=== PATIENT | male | born 1990 | race Caucasian/White ===

== ENCOUNTER → 2017-01-08 | Outpatient (CLI) | payer BC | END | disposition home or self-care (01) | LOC: LABPAT 11:41 | PROVIDERS: ATTEND Surgery | DX: Z01.810 Encounter for preprocedural cardiovascular examination (principal) | CPT/HCPCS: 86850; 86900; 86901; 93005 ==

== ENCOUNTER 2017-01-10 08:17 | Inpatient (IN) | payer BC ==
[2017-01-08 10:20] VITALS: BMI 36.6
[~2017-01-10 08:17] MED LIST: DEXAMETHASONE SOD PHOSPHATE 10 MG/ML 1 ML VIAL IV ONE; HEPARIN SODIUM,PORCINE 5,000 UNIT/ML 1 ML VIAL SQ ONE; HYDROmorphone 1 MG/ML 1 ML SYRINGE IVP PRN; LACTATED RINGERS 1,000 ML IV SCH; MIDAZOLAM 2 MG/2 ML VIAL IV PRN; ONDANSETRON 4 MG/2 ML VIAL IVP ONE; SCOPOLAMINE 1.5MG/72HR PATCH TRANSDERM ONE; ceFAZolin 3 GM in SODIUM CHLORIDE 0.9% 100 ML IVPB ONE; metroNIDAZOLE-NS PMX 500 MG in SALINE 1 100ML.BAG IVPB ONE
[2017-01-10] MEDS ORDERED: LIDOCAINE 1% 20 ML VIAL (10MG/ML) FOR IV START INTRADERMA ONE (09:13)
[2017-01-10] MEDS ORDERED: fentaNYL (PF) 50 MCG/ML 2 ML AMP IV ONE (09:19)
[2017-01-10] MEDS ORDERED: NALOXONE 0.4 MG/ML 1 ML VIAL IV PRN (09:46)
[2017-01-10] MEDS ORDERED: NALBUPHINE 10 MG/ML AMPUL IV PRN (09:46)
--- NOTE | 2017-01-10 10:20 | P.GSHP ---
History of Present Illness H&P Date: 01/10/17 Chief Complaint: Carcinoid tumor appendix This is a 26-year-old male who underwent recent laparoscopic appendectomy. 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 Patient presents today for laparoscopic right colectomy. - Constitutional Constitutional: Reports as per HPI Past Medical History Past Medical History: Asthma, Skin Disorder Additional Past Medical History / Comment(s): hx migraines, Occ slight elevated BP-no rx , dr watching, mass in colon found during appendectomy, dry skin, History of Any Multi-Drug Resistant Organisms: None Reported Past Surgical History: Appendectomy Additional Past Surgical History / Comment(s): appendectomy 12/19/16, Past Anesthesia/Blood Transfusion Reactions: No Reported Reaction Past Psychological History: Depression Smoking Status: Former smoker Past Alcohol Use History: Occasional Additional Past Alcohol Use History / Comment(s): quit smoking 8 yrs ago, smoked for approx 5 yrs, < 1 PPD Past Drug Use History: None Reported - Past Family History Mother Family Medical History: No Reported History Medications and Allergies Home Medications Medication Instructions Recorded Confirmed Type Escitalopram Oxalate [Lexapro] 20 mg PO DAILY 01/08/17 01/08/17 History Loratadine [Claritin] 10 mg PO DAILY PRN 01/08/17 01/10/17 History Phentermine HCl [Adipex-P] 37.5 mg PO QAM 01/08/17 01/10/17 History Allergies Allergy/AdvReac Type Severity Reaction Status Date / Time No Known Allergies Allergy Verified 01/10/17 08:42 Surgical - Exam Vital Signs Temp Pulse Resp BP Pulse Ox 97.6 F 71 16 143/84 97 01/10/17 08:39 01/10/17 08:39 01/10/17 08:39 01/10/17 08:39 01/10/17 08:39 - General well developed, no distress - Eyes PERRL - ENT normal pinna - Neck no masses - Respiratory normal expansion - Cardiovascular Rhythm: regular - Abdomen Abdomen: soft, non tender Assessment and Plan Plan: Carcinoid tumor of appendix. Patient will undergo laparoscopic right colectomy.
[2017-01-10] MEDS ORDERED: NEOSTIGMINE 1 MG/ML 10 ML VIAL ONE (10:50)
[2017-01-10] MEDS ORDERED: LIDOCAINE 1% INJ 10MG/ML (20 ML MDV) ONE (10:50)
[2017-01-10] MEDS ORDERED: GLYCOPYRROLATE 0.2 MG/ML 2 ML VIAL ONE (10:50)
[2017-01-10] MEDS ORDERED: PROPOFOL 10 MG/ML 20 ML VIAL IV ONE (10:50)
[2017-01-10] MEDS ORDERED: ONDANSETRON 4 MG/2 ML VIAL ONE (10:50)
[2017-01-10] MEDS ORDERED: fentaNYL (PF) 50 MCG/ML 2 ML AMP ONE (10:50)
[2017-01-10] MEDS ORDERED: ROCURONIUM BROMIDE 10 MG/ML 10 ML VIAL IV ONE (10:50)
[2017-01-10] MEDS ORDERED: PHENYLEPHRINE-0.9% NACL SYG 1 MG/10 ML SYRINGE ONE (10:50)
[2017-01-10] MEDS ORDERED: SUCCINYLCHOLINE CHLORIDE 100 MG/5 ML SYR IV ONE (10:50)
[2017-01-10] MEDS ORDERED: MIDAZOLAM 2 MG/2 ML VIAL ONE (10:50)
[2017-01-10] MEDS ORDERED: BUPIVACAIN-EPI 0.25%-1:200,000 30 ML VIAL SQ ONE ×2 (11:25)
[2017-01-10] MEDS ORDERED: LACTATED RINGERS 1,000 ML IV ONE ×3 (11:58→13:48)
[2017-01-10] MEDS ORDERED: KETOROLAC 30 MG/ML 1 ML VIAL IVP PRN (12:21)
[2017-01-10] MEDS ORDERED: ONDANSETRON 4 MG/2 ML VIAL IVP PRN (12:21)
--- NOTE | 2017-01-10 12:21 | P.OP ---
Date of Procedure: 01/10/17 Preoperative Diagnosis: Carcinoid tumor of appendix Postoperative Diagnosis: Carcinoid tumor appendix Procedure(s) Performed: Laparoscopic right colectomy Anesthesia: BOBBY Surgeon: Benji Jimenez Estimated Blood Loss (ml): 15 Pathology: other (Ileocolectomy) Condition: stable Disposition: PACU Description of Procedure: The patient's placed on the operative table in the supine position. He received general anesthesia. His abdomen was prepped and draped in the usual sterile fashion. The skin incision sites were anesthetized with 1% local Xylocaine. The skin was incised umbilicus. And then using a Newell clamp the fascia was grasped in the Veress needles placed into the peritoneal cavity. Position of the peritoneal cavity as confirmed with positive drop test. After adequate insufflation the 5 mm trocar was placed into the peritoneal cavity. Next the laparoscope was placed into the pleural cavity and then a 5 mm trocar was placed in the epigastric position and in the low midline position. The cecum was visualized. The patient's placed in the right side up position. Using the Harmonic scissors. The white line of Toldt was divided and the cecum right colon and hepatic flexure was mobilized. Ileum was also mobilized. After full mobilization of the right colon. The trochars withdrawn. The fascia was opened at the level of the umbilicus. The cecum and terminal ileum were brought up in the wound. The cecum and terminal ileum were then transected with the linear cutter stapler. And then using the Harmonic scissors the mesentery the bowel was divided. The specimen was sent to pathology. And then using the MERVIN and TA staplers a onai-hd-devl functional end -to-end staple anastomosis was created. A 3-0 GI silk suture was used as a crotch stitch and then the bowel was placed back the pleural cavity. The fascia of the umbilical incision site was then closed using 0 Vicryl suture. Skin was closed with interrupted 3-0 Monocryl suture. Dermabond dressings was applied. Patient sent to recovery room stable condition.
[2017-01-10] MEDS: BUPIVACAINE (PF) 0.5% 50 ML, HYDROmorphone 5 MG in SODIUM CHLORIDE 0.9% 198 ML EPIDURAL PRN ×3 (12:35→13:48)
[2017-01-10] MEDS: D5-0.45% NACL WITH KCL 20MEQ/L 1,000 ML IV SCH ×2 (17:09→19:46)
[2017-01-10] MEDS: ALVIMOPAN 12 MG CAPSULE PO SCH (19:50)
[2017-01-11] MEDS: D5-0.45% NACL WITH KCL 20MEQ/L 1,000 ML IV SCH ×3 (00:33→19:07)
[2017-01-11] MEDS: diphenhydrAMINE 50 MG/ML 1 ML VIAL IVP PRN ×3 (04:04→19:37)
[2017-01-11] MEDS: ALVIMOPAN 12 MG CAPSULE PO SCH ×2 (08:25→21:54)
--- NOTE | 2017-01-11 09:41 | P.PN ---
Subjective Principal diagnosis: Cecal carcinoid Patient doing well today. Minimal discomfort. No flatus or bowel movement. He is ambulating. Objective - Vital Signs Vital signs: Vital Signs Temp 98.2 F 01/11/17 01:08 Pulse 102 H 01/11/17 01:08 Resp 16 01/11/17 01:08 BP 128/65 01/11/17 01:08 Pulse Ox 94 L 01/11/17 01:08 Intake & Output 01/10/17 01/11/17 01/11/17 18:59 06:59 18:59 Intake Total 2222 1297 Output Total 45 1999 320 Balance 2177 -643 -3200 Weight 122.47 kg Intake: IV 2222 1297 Bupivacaine (Pf) 0.5% 50 72 ml HYDROmorphone 5 mg In Sodium Chloride 0.9% 198 ml @ Per Protocol EPIDURAL .Q0M PRN Rx#: [id number] D5-0.45% NaCl with KCl 1125 20Meq/l 1,000 ml @ 125 mls/hr IV .Q8H EVAN Rx#: [id number] ceFAZolin 3 gm In Sodium 100 Chloride 0.9% 100 ml @ 100 mls/hr IVPB ONCE ONE Rx#:[id number] Output: Urine 20 1999 3200 Uretheral (Waller) 1000 3200 Estimated Blood Loss 25 Other: Voiding Method Indwelling Catheter Indwelling Catheter - Exam Abdomen: Soft, minimal incisional tenderness, nondistended, incisions clean and dry Assessment and Plan (1) Cecal carcinoid Narrative/Plan: Will advance diet to full liquids. Check lab work. Increase activity. Status: Acute
[2017-01-11] MEDS: BUPIVACAINE (PF) 0.5% 50 ML, HYDROmorphone 5 MG in SODIUM CHLORIDE 0.9% 198 ML EPIDURAL PRN (12:00)
[2017-01-12] MEDS: diphenhydrAMINE 50 MG/ML 1 ML VIAL IVP PRN ×4 (00:42→21:33)
[2017-01-12] MEDS: D5-0.45% NACL WITH KCL 20MEQ/L 1,000 ML IV SCH ×3 (02:17→20:23)
[2017-01-12 07:20] LABS: Basophils % (A) 0 %; CH 30.3; CHCM 33.3; Eosinophils % (A) 1 %; HDW 2.59; HGB 12.7 gm/dL (13.0-17.5); Luc # (Auto) 0.11; Luc % (Auto) 2; Lymphocytes # (A) 1.4 k/uL (1.0-4.8); Lymphocytes % (A) 22 %; MCH 29.6 pg (25.0-35.0); MCHC 32.5 g/dL (31.0-37.0); MCV 91.3 fL (80.0-100.0); Mean Platelet Volume 8.4; Monocytes # (A) 0.5 k/uL (0-1.0); Monocytes % (A) 7 %; Neutrophils # (A) 4.5 k/uL (1.3-7.7); Neutrophils % (A) 69 %; RBC 4.28 m/uL (4.30-5.90); RDW 13.2 % (11.5-15.5); WBC 6.6 k/uL (3.8-10.6); WBC (Perox) 7.19
[2017-01-12 07:30] LABS: Anion Gap 6 mmol/L; Blood Urea Nitrogen 7 mg/dL (9-20); Carbon Dioxide 32 mmol/L (22-30); Chloride 102 mmol/L (98-107); Glucose 89 mg/dL (74-99); Non-African American GFR(MDRD) >60 (>60 ml/min/1.73 sqM); Potassium 4.8 mmol/L (3.5-5.1); Sodium 140 mmol/L (137-145)
[2017-01-12] MEDS: ALVIMOPAN 12 MG CAPSULE PO SCH ×2 (08:35→20:23)
--- NOTE | 2017-01-12 10:34 | P.PN ---
Subjective Principal diagnosis: Cecal carcinoid Patient doing well today. Having mild lower abdominal pain. Ambulating. Positive flatus. Asking for more to eat. White blood cell count normal. Objective - Vital Signs Vital signs: Vital Signs Temp 97.5 F L 01/12/17 07:00 Pulse 82 01/12/17 07:00 Resp 15 01/12/17 07:00 BP 126/70 01/12/17 07:00 Pulse Ox 96 01/12/17 07:00 Intake & Output 01/11/17 01/12/17 01/12/17 18:59 06:59 18:59 Intake Total 2124.717 1556.933 Output Total 3200 1100 Balance -1075.283 456.933 Intake: IV 750 1500 D5-0.45% NaCl with KCl 750 1500 20Meq/l 1,000 ml @ 125 mls/hr IV .Q8H [facility] Rx#: [id number] Intake, IV Titration 54.717 56.933 Amount Bupivacaine (Pf) 0.5% 50 54.717 56.933 ml HYDROmorphone 5 mg In Sodium Chloride 0.9% 198 ml @ Per Protocol EPIDURAL .Q0M PRN Rx#: [id number] Oral 1320 Output: Urine 3200 1100 Uretheral (Waller) 3200 1100 Other: Voiding Method Indwelling Catheter Indwelling Catheter Indwelling Catheter - Exam Abdomen: Soft, nondistended, mild lower abdominal tenderness, incisions clean and dry - Labs CBC & Chem 7: 01/12/17 06:47 01/12/17 06:47 Labs: Abnormal Lab Results - Last 24 Hours (Table) 01/12/17 01/12/17 Range/Units 06:47 06:47 RBC 4.28 L (4.30-5.90) m/uL Hgb 12.7 L (13.0-17.5) gm/dL Carbon Dioxide 32 H (22-30) mmol/L BUN 7 L (9-20) mg/dL Assessment and Plan (1) Cecal carcinoid Narrative/Plan: Continuing dilation. Increase diet. Status: Acute
[2017-01-12] MEDS: HYDROcodone/APAP 5-325MG 1 EACH TAB PO PRN (21:28)
[2017-01-12] MEDS: HYDROmorphone 1 MG/ML 1 ML SYRINGE IVP PRN (23:24)
[2017-01-13] MEDS: HYDROcodone/APAP 5-325MG 1 EACH TAB PO PRN ×3 (01:35→11:48)
[2017-01-13] MEDS: D5-0.45% NACL WITH KCL 20MEQ/L 1,000 ML IV SCH (03:13)
[2017-01-13] MEDS: HYDROmorphone 1 MG/ML 1 ML SYRINGE IVP PRN (04:23)
[2017-01-13] MEDS: diphenhydrAMINE 50 MG/ML 1 ML VIAL IVP PRN (05:05)
[2017-01-13 07:11] LABS: Basophils % (A) 0 %; CH 29.9; CHCM 33.1; Eosinophils # (A) 0.1 k/uL (0-0.7); Eosinophils % (A) 2 %; HCT 38.8 % (39.0-53.0); HDW 2.58; HGB 12.8 gm/dL (13.0-17.5); Luc # (Auto) 0.12; Luc % (Auto) 2; Lymphocytes # (A) 1.5 k/uL (1.0-4.8); Lymphocytes % (A) 29 %; MCH 29.9 pg (25.0-35.0); MCHC 32.9 g/dL (31.0-37.0); MCV 90.9 fL (80.0-100.0); Mean Platelet Volume 7.7; Monocytes # (A) 0.5 k/uL (0-1.0); Monocytes % (A) 9 %; Neutrophils # (A) 3.1 k/uL (1.3-7.7); Neutrophils % (A) 58 %; RBC 4.27 m/uL (4.30-5.90); WBC 5.3 k/uL (3.8-10.6); WBC (Perox) 5.73
[2017-01-13] MEDS: ALVIMOPAN 12 MG CAPSULE PO SCH (07:12)
[2017-01-13 07:22] LABS: Anion Gap 9 mmol/L; Blood Urea Nitrogen 10 mg/dL (9-20); Calcium 9.1 mg/dL (8.4-10.2); Carbon Dioxide 28 mmol/L (22-30); Chloride 102 mmol/L (98-107); Glucose 77 mg/dL (74-99); Non-African American GFR(MDRD) >60 (>60 ml/min/1.73 sqM); Potassium 4.1 mmol/L (3.5-5.1); Sodium 139 mmol/L (137-145)
[2017-01-13 07:28] VITALS: BP 116/73; PULSE 69; RESP 17; TEMP 97.6
--- NOTE | 2017-01-13 15:32 | P.DS ---
Providers Date of admission: 01/10/17 08:18 Expected date of discharge: 01/13/17 Attending physician: Benji Jimenez Primary care physician: Miriam Bernal [facility] Course: Patient is a 26-year-old white male who recently underwent laparoscopic appendectomy and was found to have a carcinoid tumor extending to the base of the appendix. Patient presented to the hospital for elective laparoscopic right colectomy. Patient tolerated procedure well. Patient had an uneventful postoperative course. Patient was deemed stable for discharge to home with follow-up in the outpatient setting. Discharge diagnoses: Carcinoid tumor of the appendix status post laparoscopic right colectomy. The above impression and plan have been discussed and directed by Dr. Jimenez. Cassy COOMBS acting as scribe for Dr. Jimenez. Procedures: Laparoscopic right colectomy Patient Condition at Discharge: Good Plan - Discharge Summary New Discharge Prescriptions: HYDROcodone/APAP 7.5-325MG [Lindsey 7.5-325] 1 tab PO Q6HR PRN #28 tab PRN Reason: Pain Discharge Medication List Escitalopram Oxalate [Lexapro] 20 mg PO DAILY 01/08/17 [History] Loratadine [Claritin] 10 mg PO DAILY PRN 01/08/17 [History] Phentermine HCl [Adipex-P] 37.5 mg PO QAM 01/08/17 [History] HYDROcodone/APAP 7.5-325MG [Lindsey 7.5-325] 1 tab PO Q6HR PRN #28 tab 01/13/17 [ Rx] Follow up Appointment(s)/Referral(s): Miriam Bernal MD [Primary Care Provider] - 01/20/17 2:00 pm (Saige Rios NP. ) Benji Jimenez MD [STAFF PHYSICIAN] - 01/21/17 3:00 pm Patient Instructions/Handouts: Laparoscopic Bowel Resection (DC) Activity/Diet/Wound Care/Special Instructions: No heavy lifting, pushing, or pulling items greater than 10 pounds. Soft diet Shower daily, no soaking in bath tubs, pools, or hot tubs. No driving while taking pain medication. Notify surgeon with any signs or symptoms of infection, increased pain, or not tolerating diet. Discharge Disposition: HOME SELF-CARE Pending Studies Pending Results: Pathology of colon
== END 2017-01-13 14:19 | disposition home or self-care (01) | DRG 331 ==
LOC: 2ORWHC 08:18 → 3SUR 12:35
PROVIDERS: ADMIT Surgery; ATTEND Surgery
PROC: 0DTF4ZZ Resection of Right Large Intestine, Percutaneous Endoscopic Approach (ICD-10-PCS; principal; 2017-01-10 10:15)
DX: C18.1 Malignant neoplasm of appendix (principal); F32.9 Major depressive disorder, single episode, unspecified; J45.909 Unspecified asthma, uncomplicated; Z87.891 Personal history of nicotine dependence; Z79.899 Other long term (current) drug therapy
CPT/HCPCS: 80048; 85025; 86850; 86900; 86901; 88309

== ENCOUNTER 2017-07-16 10:47 | Day surgery (SDC) | payer BC, OTHER ==
[2017-07-09 11:01] VITALS: BMI 39.3
[~2017-07-16 10:47] MED LIST changes: -HYDROmorphone 1 MG/ML 1 ML SYRINGE IVP PRN; -MIDAZOLAM 2 MG/2 ML VIAL IV PRN; -SCOPOLAMINE 1.5MG/72HR PATCH TRANSDERM ONE; -metroNIDAZOLE-NS PMX 500 MG in SALINE 1 100ML.BAG IVPB ONE
[2017-07-16] MEDS ORDERED: LIDOCAINE 1% 20 ML VIAL (10MG/ML) FOR IV START INTRADERMA ONE (12:31)
--- NOTE | 2017-07-16 13:03 | P.GSHP ---
History of Present Illness H&P Date: 07/16/17 Chief Complaint: Incarcerated incisional hernia This is a 26-year-old male who's undergone previous laparoscopic right colectomy. Patient is developed an incarcerated incisional hernia. He presents today for laparoscopic robotic system repair. - Constitutional Constitutional: Reports as per HPI Past Medical History Past Medical History: Asthma Additional Past Medical History / Comment(s): Hx asthma as a child, since resolved. Hx migraines. History of Any Multi-Drug Resistant Organisms: None Reported Past Surgical History: Appendectomy Additional Past Surgical History / Comment(s): Surgery to remove mass from colon that was found during appendectomy. Past Anesthesia/Blood Transfusion Reactions: No Reported Reaction Past Psychological History: Depression Additional Psychological History / Comment(s): No current issues with depression. Smoking Status: Former smoker Past Alcohol Use History: Occasional Additional Past Alcohol Use History / Comment(s): Quit smoking 9-10 yrs ago, smoked for approx 5 yrs, < 1 PPD. Past Drug Use History: None Reported - Past Family History Mother Family Medical History: No Reported History Medications and Allergies Home Medications Medication Instructions Recorded Confirmed Type Loratadine [Claritin] 10 mg PO DAILY PRN 01/08/17 07/16/17 History Phentermine HCl [Adipex-P] 37.5 mg PO QAM 01/08/17 07/09/17 History Allergies Allergy/AdvReac Type Severity Reaction Status Date / Time No Known Allergies Allergy Verified 07/09/17 10:51 Surgical - Exam Vital Signs Temp Pulse Resp BP Pulse Ox 97.9 F 56 L 18 143/88 96 07/16/17 12:08 07/16/17 12:08 07/16/17 12:08 07/16/17 12:08 07/16/17 12:08 - General well developed, no distress - Eyes PERRL - ENT normal pinna - Neck no masses - Respiratory normal expansion - Cardiovascular Rhythm: regular - Abdomen Abdomen: soft, non tender Hernia: incisional (Incarcerated incisional hernia located above the umbilicus) Assessment and Plan Plan: Incarcerated incisional hernia. We'll perform laparoscopic robotic-assisted repair.
[2017-07-16] MEDS ORDERED: ROCURONIUM BROMIDE 10 MG/ML 10 ML VIAL IV ONE (13:08)
[2017-07-16] MEDS ORDERED: fentaNYL (PF) 50 MCG/ML 2 ML AMP ONE (13:08)
[2017-07-16] MEDS ORDERED: KETOROLAC 30 MG/ML 1 ML VIAL ONE (13:08)
[2017-07-16] MEDS ORDERED: PROPOFOL 10 MG/ML 20 ML VIAL IV ONE (13:08)
[2017-07-16] MEDS ORDERED: SUCCINYLCHOLINE CHLORIDE 100 MG/5 ML SYR IV ONE (13:08)
[2017-07-16] MEDS ORDERED: HYDROmorphone (PF) 1 MG/ML ONE (13:08)
[2017-07-16] MEDS ORDERED: MIDAZOLAM 2 MG/2 ML VIAL ONE (13:08)
[2017-07-16] MEDS ORDERED: NEOSTIGMINE 1 MG/ML 10 ML VIAL ONE (13:08)
[2017-07-16] MEDS ORDERED: LIDOCAINE 1% INJ 10MG/ML (20 ML MDV) ONE (13:08)
[2017-07-16] MEDS ORDERED: GLYCOPYRROLATE 0.2 MG/ML 2 ML VIAL ONE (13:08)
[2017-07-16] MEDS ORDERED: LIDOCAINE 2%-EPI 1:100,000 20 ML VIAL SQ ONE (13:29)
[2017-07-16] MEDS ORDERED: BUPIVACAINE (PF) 0.25% 30 ML VIAL SQ ONE (13:30)
--- NOTE | 2017-07-16 14:05 | P.OP ---
Date of Procedure: 07/16/17 Preoperative Diagnosis: Incarcerated incisional hernia Postoperative Diagnosis: incarcerated incisional hernia Procedure(s) Performed: Laparoscopic robotic-assisted repair of incarcerated incisional hernia Implants: Anesthesia: JOBA Surgeon: Benji Jimenez Estimated Blood Loss (ml): 5 Pathology: none sent Condition: stable Disposition: PACU Indications for Procedure: Operative Findings: Description of Procedure: Patient's placed on the operating table in the supine position. He received general anesthesia. His abdomen was prepped and draped usual sterile fashion. The abdomen was entered with a 5 mm optical trocar under direct visualization in the left upper quadrant. After adequate insufflation a millimeters robotic trochars placed left lower quadrant. Then a 12 mm trochars placed left lateral position. The initial 5 mm trocar was exchanged for an 8 mm robotic trocar. The patient was placed left side up position and then docked to the robot. Patient had an incarcerated incisional hernia. Using left cautery the incarcerated fat was reduced from the incisional hernia. And then using OV lock suture the fascia was repaired. After the fascial repair. The ventral light ST mesh was secured using 2 OV lock suture. Patient was undocked the robot. The needles were withdrawn. The 12 mm trocar site was closed with 0 Ethibond suture. Skin was closed interrupted 3-0 Monocryl suture. Dermabond was applied. She top she will well and was sent to recovery in stable condition.
[2017-07-16 14:32] VITALS: TEMP 97.6
[2017-07-16] MEDS: HYDROmorphone 1 MG/ML 1 ML SYRINGE IVP PRN ×2 (14:33→14:40)
[2017-07-16] MEDS ORDERED: LACTATED RINGERS 1,000 ML IV ONE ×2 (14:49)
[2017-07-16] MEDS: MEPERIDINE 50 MG/ML SYRINGE IVP ONE ×2 (14:51→14:57)
[2017-07-16 15:03] VITALS: RESP 18
[2017-07-16] MEDS ORDERED: HYDROcodone/APAP 7.5-325MG 1 EACH TAB PO ONE (15:17)
[2017-07-16 15:25] VITALS: BP 120/78; PULSE 89
== END 2017-07-16 16:00 | disposition home or self-care (01) ==
LOC: OR 10:47
PROVIDERS: ATTEND Surgery
DX: K43.0 Incisional hernia with obstruction, without gangrene (principal); J45.909 Unspecified asthma, uncomplicated; F32.9 Major depressive disorder, single episode, unspecified; Z87.891 Personal history of nicotine dependence; Z79.899 Other long term (current) drug therapy; E66.01 Morbid (severe) obesity due to excess calories
CPT/HCPCS: 49655; C1781; J1644; J1100; J2175; J0690; J2405; J1170

== ENCOUNTER 2017-12-26 06:49 | Day surgery (SDC) | payer BC, OTHER ==
[2017-12-23 15:31] VITALS: BMI 43.4
[~2017-12-26 06:49] MED LIST changes: -DEXAMETHASONE SOD PHOSPHATE 10 MG/ML 1 ML VIAL IV ONE; -HEPARIN SODIUM,PORCINE 5,000 UNIT/ML 1 ML VIAL SQ ONE; -ONDANSETRON 4 MG/2 ML VIAL IVP ONE; -ceFAZolin 3 GM in SODIUM CHLORIDE 0.9% 100 ML IVPB ONE
[2017-12-26 07:10] VITALS: RESP 18; TEMP 97.9
[2017-12-26] MEDS ORDERED: PROPOFOL 10 MG/ML 20 ML VIAL IV ONE (07:45)
--- NOTE | 2017-12-26 07:55 | P.GSHP ---
History of Present Illness H&P Date: 12/26/17 Chief Complaint: History of carcinoid tumor appendix Cystoscopy 27-year-old male with a previous history of carcinoid tumor the appendix. Patient presents today for colonoscopy for colon cancer surveillance. Past Medical History Past Medical History: Asthma Additional Past Medical History / Comment(s): Hx asthma as a child, since resolved. Hx migraines. History of Any Multi-Drug Resistant Organisms: None Reported Past Surgical History: Appendectomy Additional Past Surgical History / Comment(s): Surgery to remove benign mass from colon Past Anesthesia/Blood Transfusion Reactions: No Reported Reaction Smoking Status: Former smoker - Past Family History Mother Family Medical History: No Reported History Medications and Allergies Home Medications Medication Instructions Recorded Confirmed Type No Known Home Medications [No 12/23/17 12/26/17 History Known Home Medications] Allergies Allergy/AdvReac Type Severity Reaction Status Date / Time No Known Allergies Allergy Verified 12/23/17 15:26 Surgical - Exam Vital Signs Temp Pulse Resp BP Pulse Ox 97.9 F 75 18 125/79 96 12/26/17 07:08 12/26/17 07:08 12/26/17 07:08 12/26/17 07:08 12/26/17 07:08 - General well developed, no distress - Eyes PERRL - ENT normal pinna - Neck no masses - Respiratory normal expansion - Cardiovascular Rhythm: regular - Abdomen Abdomen: soft, non tender Assessment and Plan Assessment: History of carcinoid tumor. Patient will undergo colonoscopy.
--- NOTE | 2017-12-26 08:05 | P.OP ---
Date of Procedure: 12/26/17 Preoperative Diagnosis: History of carcinoid tumor appendix Postoperative Diagnosis: Normal colonoscopy status post right colectomy Procedure(s) Performed: Colonoscopy Anesthesia: MAC Surgeon: Benji Jimenez Pathology: none sent Condition: stable Disposition: PACU Description of Procedure: PROCEDURE: The patient was placed on the endoscopy table in the lateral position. Digital rectal examination was performed which revealed no abnormalities. The prostate was symmetrical without nodules. Flexible colonoscope was then placed in the patient's anus and passed throughout the entire colon. The right colon was visualized. The patient a previous ileocolonic anastomosis this was normal.. The ascending, transverse, descending and sigmoid colon were normal. The rectum was normal as well. There were no masses, polyps or diverticula noted in the entire colon. SUMMARY OF FINDINGS: Normal colonoscopy status post right colectomy
[2017-12-26 08:44] VITALS: BP 119/65; PULSE 53
== END 2017-12-26 08:53 | disposition home or self-care (01) ==
LOC: ORWHC2ENDO 06:49
PROVIDERS: ATTEND Surgery
DX: Z08 Encounter for follow-up examination after completed treatment for malignant neoplasm (principal); Z85.030 Personal history of malignant carcinoid tumor of large intestine; Z90.49 Acquired absence of other specified parts of digestive tract; Z87.891 Personal history of nicotine dependence
CPT/HCPCS: 45378; J2704

== ENCOUNTER → 2018-02-03 | Outpatient (CLI) | payer OTHER ==
--- NOTE | 2018-02-03 21:53 | CONS ---
CONSULTATION REASON FOR CONSULTATION: Sleep apnea. This is a 27-year-old male patient who was screened positive for obstructive sleep apnea during a routine DOT examination. He has mild soft snoring and his neck size is 18 inches with a BMI of 45. He denies having any hypersomnia or sleepiness. 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 He goes to bed between 10 p.m. and midnight and wakes up at 6 a.m. in the morning. He averages somewhere between 6 and 8 hours of sleep. He does not fall asleep while driving his car. Denies having to wake up choking or gasping in the middle of the night. No grinding of the teeth. No nocturia. No palpitation. No anxiety. No heartburn. He is otherwise healthy. He is trying to lose weight. He is taking phentermine. PAST MEDICAL HISTORY: Obesity. PAST SURGICAL HISTORY: Appendectomy and removal of part of the colon along with hernia repair. DRUG ALLERGIES: NOT KNOWN. OUTPATIENT MEDICATION: Phentermine 1 tablet a day. SOCIAL HISTORY: Nonsmoker. No history of alcoholism. No history of IV drugs. FAMILY HISTORY: Negative for sleep apnea. REVIEW OF SYSTEMS: Twelve-point review of systems was done and positive findings are mentioned above in the history of present illness. No history of any nocturia. No grinding of the teeth. No sleepwalking. No dry mouth. No anxiety or panic attacks. No heartburn. No gasping for air in the middle of the night during sleep. No restlessness in the lower extremities. No sleeptalking or sleepwalking. No anxiety. No depression. PHYSICAL EXAMINATION: BP is 156/89, pulse 64, respirations 16, temperature 98.2, saturation 99% on room air. Weight is 326, height 5 feet 11 inches and BMI is 45. Neck size 18 inches. GENERAL APPEARANCE: Calm, comfortable. Head is atraumatic, normocephalic. Neck is short, supple. There is no goiter or neck masses. LUNGS: Diminished breath sounds. Otherwise clear. HEART: Sounds are regular rate and rhythm. Normal S1, S2. No S3. No S4. No murmurs. ABDOMEN: Soft, nontender. No organomegaly. EXTREMITIES: No edema. No cyanosis or clubbing. NEUROLOGIC: Alert and oriented x3. No focal neurological deficits. PSYCHIATRIC: No anxiety or depression. IMPRESSION: 1. Snoring with anatomic features of obstructive sleep apnea with an elevated body mass index of 45 and a neck size of 18 inches. Rule out underlying obstructive sleep apnea. 2. 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 Awaiting DOT clearance. 3. Obesity. PLAN: 1. Proceed with a PSG, looking for any significant sleep breathing disorder. 2. Will review the sleep study once completed and will refer back to [facility] regarding his DOT certification. 3. Encourage weight loss. MMSUKHL / MARIA DEL ROSARION: [id number] /
== END | disposition home or self-care (01) ==
LOC: SLEEP 16:55
PROVIDERS: ATTEND Internal Medicine Critical Care Medicine
DX: R06.83 Snoring (principal); E66.9 Obesity, unspecified; Z68.42 Body mass index [BMI] 45.0-49.9, adult
CPT/HCPCS: 99211

== ENCOUNTER 2018-04-12 20:04 | Observation (INO) | payer OTHER ==
[2018-04-12] MEDS ORDERED: SODIUM CHLORIDE 0.9% 1,000 ML IV STA ×2 (20:42→21:37)
[2018-04-12] MEDS ORDERED: ASPIRIN 81 MG PO STA (20:42)
--- NOTE | 2018-04-12 20:42 | ED ---
Chest Pain HPI - General Chief Complaint: Chest Pain Stated Complaint: Dizziness/Chest Heaviness Time Seen by Provider: 04/12/18 20:31 Source: patient, RN notes reviewed Mode of arrival: ambulatory Limitations: no limitations - History of Present Illness Initial Comments: This is a 27-year-old male who presents to the emergency department with chief complaint of chest tightness and dizziness. Patient states that earlier this morning he was out on the boat for 5 hours. He states that he felt well throughout the day. He states that 2 hours ago he developed some nausea and dizziness. He states that he feels like the room is vibrating. He states that he then developed a central chest tightness that lasted for approximately half an hour and then went away. He states that he then had 4 episodes of vomiting. The chest pain then returned again and is still present. Patient states that he was breathing heavily but denies any shortness of breath. He denies any recent illnesses. Denies fevers or chills, abdominal pain, diarrhea or constipation, dysuria or hematuria. He denies any past medical history. - Related Data Home Medications Medication Instructions Recorded Confirmed No Known Home Medications [No 12/23/17 04/12/18 Known Home Medications] Allergies Allergy/AdvReac Type Severity Reaction Status Date / Time No Known Allergies Allergy Verified 04/12/18 20:13 Review of Systems ROS Statement: Those systems with pertinent positive or pertinent negative responses have been documented in the HPI. ROS Other: All systems not noted in ROS Statement are negative. EKG Findings - EKG Comments: EKG Findings:: 20:23:50. Sinus rhythm with first-degree AV block. Ventricular rate 100 bpm, CT interval 212, QS duration 94, QT/QTC 340/438 Past Medical History Past Medical History: Asthma Additional Past Medical History / Comment(s): Hx asthma as a child, since resolved. Hx migraines. History of Any Multi-Drug Resistant Organisms: None Reported Past Surgical History: Appendectomy, Hernia Repair Additional Past Surgical History / Comment(s): Surgery to remove benign mass from colon Past Anesthesia/Blood Transfusion Reactions: No Reported Reaction Past Psychological History: Depression Smoking Status: Former smoker Past Alcohol Use History: Occasional Past Drug Use History: None Reported - Past Family History Mother Family Medical History: No Reported History General Exam - General Exam Comments Initial Comments: General: Awake and alert, well-developed; in no apparent distress. Resting comfortably on ED stretcher with eyes closed. is at bedside. HEENT: Head atraumatic, normocephalic. Pupils are equal, round and reactive to light. Extraocular movements intact. Oropharynx moist without erythema or exudate. Neck: Supple. Normal ROM. Cardiovascular: Regular rate and rhythm. No murmurs, rubs or gallops. Chest symmetrical. Respiratory: Lungs clear to auscultation bilaterally. No wheezes, rales or rhonchi. Normal respiratory effort with no use of accessory muscles. Abdomen: Soft, non-tender, non-distended. No rigidity, rebound or guarding. Normal bowel sounds in all 4 quadrants. Musculoskeletal: Normal ROM, no tenderness, strength 5/5 bilateral upper and lower extremities. Ambulating normally. Skin: [place], warm and dry without rashes or lesions. Neurological: Alert and oriented x3. CN II-XII grossly intact. Speech is fluent and answers are appropriate. No focal neuro deficits. Psychiatric: Normal mood and affect. No overt signs of depression or anxiety noted. Limitations: no limitations Course Vital Signs 04/12/18 04/12/18 20:10 22:00 Temperature 98.6 F Pulse Rate 114 H 95 Respiratory 18 20 Rate Blood Pressure 146/91 141/64 O2 Sat by Pulse 100 100 Oximetry - Reevaluation(s) Reevaluation #1: At this time, patient continues to complain of chest tightness. He states that his dizziness has improved, however no complains of a pounding headache. He also complains of some nausea. States that he has received Zofran in the past and this has made him feel even more sick. Labs were reviewed and are unremarkable. Troponin and d-dimer are negative. EKG reveals normal sinus rhythm. Chest x-rays negative. 04/12/18 21:28 Chest Pain MDM - MDM Chest x-ray findings: The heart size is normal. The pulmonary vasculature is normal. Lungs are clear. Impression: No acute pulmonary process. This is a 27-year-old male who presented to the emergency department with chief complaint of dizziness and chest tightness. Symptoms began at approximately 5: 30 this evening. He has had multiple episodes of vomiting. Patient denies any injury or trauma. He complains of mid chest tightness. Pain is not positional and not reproducible. Patient's heart rate and blood pressure have been elevated. Patient still currently complains of chest tightness and headache. D -dimer and troponin are negative. EKG reveals no acute abnormalities. Chest x- ray was negative. Recommended admission for observation. Findings and plan were discussed with patient. He is in agreement for admission. Patient given aspirin, sublingual nitro and started on heparin. This case was discussed with attending physician, Dr. Raphael who also evaluated the patient. Patient will be admitted to Dr. Quevedo. Serial troponin and cardiac profile ordered. Patient is in no acute distress at this time and vital signs stable. Disposition Clinical Impression: Chest pain Disposition: ADMITTED IP TO THIS HOSP Condition: Stable Is patient prescribed a controlled substance at d/c from ED?: No Referrals: Miriam Bernal MD [Primary Care Provider] - 1-2 days Time of Disposition: 22:26
[2018-04-12 20:53] LABS: Basophils % (A) 0 %; Eosinophils # (A) 0.1 k/uL (0-0.7); Eosinophils % (A) 1 %; HCT 44.6 % (39.0-53.0); HGB 15.4 gm/dL (13.0-17.5); Lymphocytes # (A) 1.8 k/uL (1.0-4.8); Lymphocytes % (A) 15 %; MCH 29.6 pg (25.0-35.0); MCHC 34.5 g/dL (31.0-37.0); MCV 85.7 fL (80.0-100.0); Mean Platelet Volume 7.9; Monocytes # (A) 0.8 k/uL (0-1.0); Monocytes % (A) 7 %; Neutrophils # (A) 9.3 k/uL (1.3-7.7); Neutrophils % (A) 76 %; Platelet Count 230 k/uL (150-450); RDW 13.4 % (11.5-15.5); WBC 12.2 k/uL (3.8-10.6)
[2018-04-12 20:59] LABS: Appearance,Urine Clear (Clear); Bilirubin,Urine Negative (Negative); Blood,Urine Negative (Negative); Color,Urine Light Yellow; Glucose,Urine (UA) Negative (Negative); Ketones,Urine Negative (Negative); Leukocyte Esterase,Urine Negative (Negative); Nitrite,Urine Negative (Negative); Protein,Urine Negative (Negative); Specific Gravity,Urine 1.011 (1.001-1.035); Urobilinogen,Urine <2.0 mg/dL (<2.0)
[2018-04-12 21:02] LABS: ALT 38 U/L (21-72); AST 29 U/L (17-59); Albumin 4.3 g/dL (3.5-5.0); Alkaline Phosphatase 101 U/L (38-126); Anion Gap 14 mmol/L; Blood Urea Nitrogen 21 mg/dL (9-20); Calcium 9.7 mg/dL (8.4-10.2); Carbon Dioxide 25 mmol/L (22-30); Chloride 103 mmol/L (98-107); Glucose 87 mg/dL (74-99); Magnesium 1.9 mg/dL (1.6-2.3); Potassium 4.4 mmol/L (3.5-5.1); Sodium 142 mmol/L (137-145); Total Bilirubin 1.4 mg/dL (0.2-1.3); Total Protein 6.9 g/dL (6.3-8.2)
[2018-04-12 21:05] LABS: Creatine Kinase 196 U/L (55-170)
--- NOTE | 2018-04-12 21:05 | XR ---
EXAMINATION TYPE: XR chest 2V DATE OF EXAM: 04/12/2018 COMPARISON: 07/26/2016 INDICATION: Chest pain dizziness TECHNIQUE: Frontal and lateral views of the chest are obtained. FINDINGS: The heart size is normal. The pulmonary vasculature is normal. The lungs are clear. IMPRESSION: 1. No acute pulmonary process.
[2018-04-12 21:08] LABS: D-Dimer 0.41 mg/L FEU (<0.60); Partial Thromboplastin Time 23.7 sec (22.0-30.0); Prothrombin Time 9.6 sec (9.0-12.0)
[2018-04-12 21:19] LABS: Creatine Kinase MB 0.7 ng/mL (0.0-2.4); Troponin I <0.012 ng/mL (0.000-0.034)
[2018-04-12] MEDS ORDERED: MORPHINE SULFATE 4 MG/ML SYRINGE IVP STA (21:37)
[2018-04-12] MEDS ORDERED: NITROGLYCERIN SL TABS 0.4 MG TAB SUBLINGUAL STA (21:38)
[2018-04-12] MEDS ORDERED: HEPARIN SODIUM,PORCINE 5,000 UNIT/ML 1 ML VIAL IV PRN (21:43)
[2018-04-12] MEDS ORDERED: HEPARIN SODIUM,PORCINE 5,000 UNIT/ML 1 ML VIAL IV ONE (21:43)
[2018-04-12] MEDS ORDERED: ONDANSETRON 4 MG/2 ML VIAL IVP STA ×2 (21:56→21:57)
[2018-04-12] MEDS ORDERED: HEPARIN SODIUM,PORCINE/D5W PMX 25,000 UNIT in DEXTROSE/WATER 1 500ML.BAG IV SCH (22:00)
[2018-04-12] MEDS ORDERED: Acetaminophen-Codeine 300-30mg TAB PO PRN (22:27)
[2018-04-12] MEDS ORDERED: NALOXONE 0.4 MG/ML 1 ML VIAL IV PRN (22:27)
[2018-04-12] MEDS ORDERED: ONDANSETRON 4 MG/2 ML VIAL IVP PRN (22:27)
[2018-04-12] MEDS ORDERED: MORPHINE SULFATE 4 MG/ML SYRINGE IV PRN (22:27)
[2018-04-12] MEDS ORDERED: ACETAMINOPHEN TAB 325 MG TAB PO PRN (22:27)
[2018-04-12] MEDS ORDERED: SODIUM CHLORIDE 0.9% 1,000 ML IV SCH (22:30)
[2018-04-12] MEDS ORDERED: ACETAMINOPHEN TAB 325 MG TAB PO STA (22:47)
[2018-04-13 03:42] LABS: Basophils % (A) 0 %; Eosinophils # (A) 0.1 k/uL (0-0.7); Eosinophils % (A) 1 %; HCT 42.2 % (39.0-53.0); HGB 14.3 gm/dL (13.0-17.5); Lymphocytes # (A) 1.8 k/uL (1.0-4.8); Lymphocytes % (A) 22 %; MCH 29.6 pg (25.0-35.0); MCHC 33.8 g/dL (31.0-37.0); MCV 87.5 fL (80.0-100.0); Mean Platelet Volume 7.5; Monocytes # (A) 0.5 k/uL (0-1.0); Monocytes % (A) 6 %; Neutrophils # (A) 5.7 k/uL (1.3-7.7); Neutrophils % (A) 69 %; Platelet Count 195 k/uL (150-450); RBC 4.82 m/uL (4.30-5.90); RDW 13.6 % (11.5-15.5); WBC 8.3 k/uL (3.8-10.6)
[2018-04-13 04:06] LABS: Creatine Kinase 137 U/L (55-170)
[2018-04-13 04:19] LABS: Creatine Kinase MB 0.6 ng/mL (0.0-2.4); Troponin I <0.012 ng/mL (0.000-0.034)
[2018-04-13 05:05] VITALS: BMI 44.7
[2018-04-13 07:35] VITALS: TEMP 97.9
[2018-04-13 08:10] VITALS: BP 120/56; PULSE 75; RESP 16
[2018-04-13] MEDS ORDERED: NITROGLYCERIN SL TABS 0.4 MG TAB SUBLINGUAL ONE (08:14)
[2018-04-13] MEDS ORDERED: MORPHINE SULFATE/PF 10MG/10ML VL IVP ONE (08:45)
--- NOTE | 2018-04-13 11:10 | P.HPIM ---
History of Present Illness H&P Date: 04/13/18 Chief Complaint: chest pain, nausea and vomiting, lightheadedness and dizziness , history of 27-year-old morbidly obese male one of Dr. Steven with patient with past medical history of asthma, migraine, history of colon mass post partial resection with Dr. Jimenez last year. Patient was on the boat fishing with his family on after 4 hours felt very sick developed to have midsternal chest pain with no radiation to the left side associated with nausea vomiting 4 with no diarrhea had significant lightheadedness and dizziness his symptoms become much worse. Ended up coming to the emergency department at [facility] where was seen and evaluated his EKG was slightly bit abnormal CK with mildly elevated with normal troponin. No other finding was found with the persistent chest pain and has slight improvement with nitro patient was admitted to the hospital heparinize will be seen cardiology will do CK with troponin 3. Review of Systems Constitutional: Reports malaise, Reports weakness, Reports weight gain, Denies as per HPI, Denies anorexia, Denies chills, Denies chronic headaches, Denies chronic pain, Denies daytime sleepiness, Denies fatigue, Denies fever, Denies lethargy, Denies night sweats, Denies poor appetite, Denies sweats, Denies weight loss Eyes: bilateral as per HPI Ears: deny: decreased hearing Ears, nose, mouth and throat: Denies as per HPI, Denies ant. neck pain, Denies bleeding gums, Denies dental pain, Denies dysphagia, Denies epistaxis, Denies headache, Denies hoarseness, Denies nasal congestion, Denies nasal discharge, Denies neck fullness/pressure, Denies neck lump, Denies nose pain, Denies odynophagia, Denies post-nasal drip, Denies sinus pain, Denies sinus pressure, Denies swelling in mouth, Denies swelling in throat, Denies sore throat, Denies vertigo, Denies voice changes Cardiovascular: Reports chest pain, Reports decreased exercise tolerance, Reports edema, Reports irregular heart beat, Reports leg edema, Reports lightheadedness, Reports orthopnea, Denies as per HPI, Denies claudication, Denies dyspnea on exertion, Denies high blood pressure, Denies palpitations, Denies paroxysmal nocturnal dyspnea, Denies phlebitis, Denies rapid heart beat, Denies shortness of breath, Denies syncope Respiratory: Reports congestion, Reports cough, Reports dyspnea, Denies as per HPI, Denies cough with sputum, Denies excessive sputum, Denies hemoptysis, Denies home oxygen, Denies pain, Denies pain on inspiration, Denies pleurisy, Denies respiratory infections, Denies sleep apnea, Denies snoring, Denies wheezing Gastrointestinal: Reports bloating, Reports dyspepsia, Reports nausea, Reports vomiting, Denies as per HPI, Denies abdominal pain, Denies belching, Denies BRBPR, Denies change in bowel habits, Denies coffee ground emesis, Denies constipation, Denies diarrhea, Denies early satiety, Denies excessive gas, Denies heartburn, Denies hematemesis, Denies hematochezia, Denies indigestion, Denies jaundice, Denies lactose intolerance, Denies loss of appetite, Denies melena Genitourinary: Denies as per HPI, Denies decreased libido, Denies difficulties fathering child, Denies discharge, Denies dysuria, Denies erectile dysfunction, Denies flank pain, Denies genital pain, Denies genital sores, Denies hematuria, Denies impotence, Denies incontinence, Denies kidney stones, Denies nocturia, Denies polyuria, Denies testicular lump, Denies testicular pain, Denies urinary frequency, Denies urinary hesitancy, Denies urinary retention Musculoskeletal: Reports low back pain, Denies as per HPI, Denies arm numbness/ tingling, Denies atrophy, Denies fractures, Denies frequent falls, Denies gait dysfunction, Denies hot joints, Denies leg numbness/tingling, Denies limitation of motion, Denies loss of height, Denies morning stiffness, Denies muscle cramps , Denies muscle weakness, Denies myalgias, Denies neck pain, Denies neck stiffness, Denies prior amputations, Denies redness of joints, Denies shooting arm pain, Denies shooting leg pain Integumentary: Denies as per HPI, Denies acne, Denies boils, Denies brittle nails, Denies change in hair/nails, Denies color changes, Denies darkening of skin, Denies depigmentation, Denies dryness, Denies foot/leg ulcers, Denies growths, Denies hirsutism, Denies lesions, Denies onychomycosis, Denies pruritus , Denies rash, Denies sores, Denies striae, Denies unusual bruising, Denies wounds Neurological: Reports paresthesias, Reports tingling, Denies as per HPI, Denies aphasia, Denies ataxia, Denies balance difficulties, Denies burning pain, Denies change in mentation, Denies change in smell/taste, Denies change in speech, Denies confusion, Denies convulsions, Denies double vision, Denies gait dysfunction, Denies head injury, Denies headaches, Denies hearing difficulties, Denies lack of coordination, Denies loss of vision, Denies memory loss, Denies migraines, Denies motor disturbance, Denies numbness, Denies paralysis, Denies seizures, Denies sensory deficit, Denies spasticity, Denies syncope, Denies tic , Denies transient paralysis, Denies tremors, Denies vertigo, Denies weakness, Denies visual changes Psychiatric: Denies as per HPI, Denies anhedonia, Denies anxiety, Denies anxiety attacks, Denies change in appetite, Denies change in libido, Denies change in sleep habits, Denies confusion, Denies depression, Denies difficulty concentrating, Denies disorientation, Denies hallucinations, Denies hopelessness , Denies hypersomnia, Denies insomnia, Denies irritability, Denies memory loss, Denies mood swings, Denies paranoia, Denies sadness/tearfulness, Denies sleep disturbances, Denies suicidal ideation Endocrine: Denies as per HPI, Denies cold intolerance, Denies deepening of the voice, Denies excessive sweating, Denies excessive thirst, Denies fatigue, Denies flushing, Denies heat intolerance, Denies high blood sugars, Denies increase in ring/shoe/hat size, Denies low blood sugars, Denies nocturia, Denies palpitations, Denies polydipsia, Denies polyphagia, Denies polyuria, Denies proptosis, Denies recent glucocorticoid use, Denies thyroid mass, Denies weight change Hematologic/Lymphatic: Denies as per HPI, Denies easy bleeding, Denies easy bruising, Denies lymphadenopathy, Denies lymphedema, Denies thrombophilia Allergic/Immunologic: Denies as per HPI, Denies allergic rhinitis, Denies anaphylaxis, Denies angioedema, Denies gluten intolerance, Denies persistent infections, Denies seasonal allergies, Denies urticaria, Denies wheezing Past Medical History Past Medical History: Asthma Additional Past Medical History / Comment(s): Hx asthma as a child, since resolved. Hx migraines. History of Any Multi-Drug Resistant Organisms: None Reported Past Surgical History: Appendectomy, Hernia Repair Additional Past Surgical History / Comment(s): Surgery to remove benign mass from colon Past Anesthesia/Blood Transfusion Reactions: No Reported Reaction Past Psychological History: Depression Additional Psychological History / Comment(s): No current issues with depression. Smoking Status: Never smoker Past Alcohol Use History: Occasional Additional Past Alcohol Use History / Comment(s): Quit smoking 9-10 yrs ago, smoked for approx 5 yrs, < 1 PPD. Past Drug Use History: None Reported - Past Family History Mother Family Medical History: No Reported History Medications and Allergies Home Medications Medication Instructions Recorded Confirmed Type Acetaminophen Tab [Tylenol] 650 mg PO Q6HR PRN tab 04/13/18 Rx Ibuprofen 400 mg PO AC-BID 7 Days #30 tablet 04/13/18 Rx Omeprazole 20 mg PO DAILY #30 cap 04/13/18 Rx Allergies Allergy/AdvReac Type Severity Reaction Status Date / Time No Known Allergies Allergy Verified 04/12/18 20:13 Physical Exam Vitals: Vital Signs Temp Pulse Pulse Resp BP BP Pulse Ox 04/13/18 08:00 75 16 120/56 98 04/13/18 04:10 97.9 F 81 18 96/55 100 04/12/18 23:20 84 18 04/12/18 23:15 98.8 F 84 18 130/62 100 04/12/18 22:44 88 20 130/60 97 04/12/18 22:00 95 20 141/64 100 04/12/18 20:10 98.6 F 114 H 18 146/91 100 Intake and Output 04/12/18 04/13/18 04/13/18 22:59 06:59 14:59 Intake Total 1300 195.667 Balance 1300 195.667 Intake: Intake, IV Titration 820 195.667 Amount Heparin Sodium,Porcine/ 120 195.667 D5w Pmx 25,000 unit In Dextrose/Water 1 500ml. bag @ 20 mls/hr IV .Q24H EVAN Rx#:[id number] Sodium Chloride 0.9% 1, 700 000 ml @ 100 mls/hr IV . Q10H EVAN Rx#:[id number] Oral 480 Other: # Voids 1 3 Weight 149.685 kg 149.4 kg - Constitutional General appearance: no average body habitus, cooperative, no disheveled, no mild distress, morbidly obese, no acute distress, no obese, no severe distress, no thin - EENT Eyes: no abnormal pupil, no anicteric sclerae, no disc margins sharp, no edentulous, no EOMI, no PERRLA, no fundus normal, no photophobia, no dentition normal, no poor dentition, no ptosis, no scleral icterus, normal appearance ENT: no hard of hearing, no hearing grossly normal, no NA/AT, no normal oropharynx, no other, pharyngeal erythema, no thrush, no tonsillar exudates, no tonsillar swelling Ears: bilateral: normal - Neck Neck: no lymphadenopathy, normal ROM, no other, no rigidity, no stridor, no thyromegaly Carotids: bilateral: upstroke normal Thyroid: bilateral: normal size - Respiratory Respiratory: bilateral: CTA - Cardiovascular Rhythm: regular Heart sounds: normal: S1, S2 - Gastrointestinal General gastrointestinal: no absent bowel sounds, no decreased bowel sounds, distended, no hepatomegaly, no hyperactive bowel sounds, normal bowel sounds, no organomegaly, no rigid, no scaphoid, soft, no splenomegaly, no tenderness, no umbilical hernia, no ventral hernia - Integumentary Integumentary: no calor, no cellulitis, no cyanotic, no decreased turgor, no flushed, no jaundiced, normal, no normal turgor, no pale, no rash, no ulcer - Neurologic Neurologic: CNII-XII intact - Musculoskeletal Musculoskeletal: gait normal, generalized weakness, no strength equal bilaterally, no right sided weakness, no left sided weakness - Psychiatric Psychiatric: A&O x's 3, appropriate affect, intact judgment & insight Results CBC & Chem 7: 04/13/18 03:20 04/12/18 20:29 Labs: Abnormal Lab Results - Last 24 Hours (Table) 04/12/18 04/12/18 04/12/18 Range/Units 20:29 20:29 20:29 WBC 12.2 H (3.8-10.6) k/uL Neutrophils # 9.3 H (1.3-7.7) k/uL APTT (22.0-30.0) sec BUN 21 H (9-20) mg/dL Total Bilirubin 1.4 H (0.2-1.3) mg/dL Total Creatine Kinase 196 H (55-170) U/L 04/13/18 Range/Units 03:20 WBC (3.8-10.6) k/uL Neutrophils # (1.3-7.7) k/uL APTT 31.1 H (22.0-30.0) sec BUN (9-20) mg/dL Total Bilirubin (0.2-1.3) mg/dL Total Creatine Kinase (55-170) U/L Thrombosis Risk Factor Assmnt - DVT/VTE Prophylaxis DVT/VTE Prophylaxis: Pharmacologic Prophylaxis ordered, Mechanical Prophylaxis ordered - Choose All That Apply Any of the Below Risk Factors Present?: Yes Each Factor Represents 1 point: Obesity (BMI >25) Other Risk Factors: No Other congenital or acquired thrombophilia - If yes, enter type in comment: No Thrombosis Risk Factor Assessment Total Risk Factor Score: 1 Thrombosis Risk Factor Assessment Level: Low Risk Assessment and Plan Plan: 1 atypical chest pain: With patient's symptoms nonexertional and no change with troponin EKG did not show any major abnormality, patient will benefit from going for stress test, discussion with him and his mom he wants to go home and have an arrangement for stress test as an outpatient. 2 abdominal pain with nausea and vomiting: Most likely acute gastritis and can be heat exhaustion will continue hydration continue omeprazole for now and watch for any further symptoms. 3 severe dizziness: Most likely mild vertigo, get aggravated by heat exhaustion. 4 heat exhaustion: Continue hydration and conservative management and watch symptoms closely. 5 history of asthma: No flareup not using any medication lately. 6 history of migraine, stable. 7 history of colon mass postresection was not cancerous according to him still have his regular follow-up. 8 GERD/GI prophylaxis: Patient will be on omeprazole 20 mg a day. 9 DVT prophylaxis: Patient was on heparin drip continue early mobilization and knee-high REED hose. CODE STATUS: Full code. Admit patient to the hospital for 23 hours hold.
--- NOTE | 2018-04-13 11:12 | P.DS ---
Providers Date of admission: 04/12/18 22:30 Attending physician: Abrahan Quevedo Consults: 04/13/18 08:42 Consult Physician Routine Consulting Provider: Ynes Velazquez Consult Reason/Comments: chest pain Do you want consulting provider notified?: Yes Primary care physician: [facility] Course: Chief Complaint: chest pain, nausea and vomiting, lightheadedness and dizziness , history of 27-year-old morbidly obese male one of Dr. Steven with patient with past medical history of asthma, migraine, history of colon mass post partial resection with Dr. Jimenez last year. Patient was on the boat fishing with his family on after 4 hours felt very sick developed to have midsternal chest pain with no radiation to the left side associated with nausea vomiting 4 with no diarrhea had significant lightheadedness and dizziness his symptoms become much worse. Ended up coming to the emergency department at [facility] where was seen and evaluated his EKG was slightly bit abnormal CK with mildly elevated with normal troponin. No other finding was found with the persistent chest pain and has slight improvement with nitro patient was admitted to the hospital heparinize will be seen cardiology will do CK with troponin 3. 04/13: Patient is feeling better no further nausea and vomiting had another episode chest pain but more skull to muscular this morning, he seen cardiology and had long discussion with him and his mom he wants to go home and have arrangement for stress test as an outpatient. Was agreeable to start him on ibuprofen for costochondritis and omeprazole for severe GERD and esophageal spasm. Also patient was hydrated well in the last 24 hours to treat his seat exhaustion and nausea and is feeling much better. Assessment and Plan Plan: 1 atypical chest pain: With patient's symptoms nonexertional and no change with troponin EKG did not show any major abnormality, patient will benefit from going for stress test, discussion with him and his mom he wants to go home and have an arrangement for stress test as an outpatient. 2 abdominal pain with nausea and vomiting: Most likely acute gastritis and can be heat exhaustion will continue hydration continue omeprazole for now and watch for any further symptoms. 3 severe dizziness: Most likely mild vertigo, get aggravated by heat exhaustion. 4 heat exhaustion: Continue hydration and conservative management and watch symptoms closely. 5 history of asthma: No flareup not using any medication lately. 6 history of migraine, stable. 7 history of colon mass postresection was not cancerous according to him still have his regular follow-up. 8 GERD/GI prophylaxis: Patient will be on omeprazole 20 mg a day. 9 DVT prophylaxis: Patient was on heparin drip continue early mobilization and knee-high REED hose. He is feeling much better after cleared by cardiology patient be discharged home to have an arrangement for outpatient stress test. Patient Condition at Discharge: Stable Plan - Discharge Summary Discharge Rx Participant: No New Discharge Prescriptions: New Acetaminophen Tab [Tylenol] 650 mg PO Q6HR PRN tab PRN Reason: Mild Pain Or Fever > 100.5 Ibuprofen 400 mg PO AC-BID 7 Days #30 tablet Omeprazole 20 mg PO DAILY #30 cap Discharge Medication List Acetaminophen Tab [Tylenol] 650 mg PO Q6HR PRN tab 04/13/18 [Rx] Ibuprofen 400 mg PO AC-BID 7 Days #30 tablet 04/13/18 [Rx] Omeprazole 20 mg PO DAILY #30 cap 04/13/18 [Rx] Follow up Appointment(s)/Referral(s): Miriam Bernal MD [Primary Care Provider] - 1-2 days Ynes Velazquez MD [STAFF PHYSICIAN] - 1 Week (Pt to make own appointment for stress test and echo outpt. Script given to pt. ) Patient Instructions/Handouts: Chest Pain (DC) Activity/Diet/Wound Care/Special Instructions: off work for [address] Bernal. need stress test as an out Pt. Care Plan Goals (MU): arrange for Echo stress test as an out Pt. Discharge Disposition: HOME SELF-CARE
[2018-04-13 11:15] LABS: Creatine Kinase 117 U/L (55-170)
[2018-04-13 11:26] LABS: Creatine Kinase MB 0.4 ng/mL (0.0-2.4); Troponin I <0.012 ng/mL (0.000-0.034)
--- NOTE | 2018-04-13 21:27 | CONS ---
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 He is a fairly active person. He presented to the emergency room with complaints of tightness in the chest in the mid sternal area and also somewhat to the right side. This came on rather spontaneously. He was out on the board for 5 hours, but did not lift or pull anything. He developed some nausea and dizziness with it and with these symptoms he came into the hospital. The quality of symptoms are very atypical. He does not have any further chest pain. His troponins are normal. He is resting comfortably. EKG was unremarkable. He then had some emesis as well prior to his arrival. It is possible that he may have had a heat stroke type picture as well, but he is resting comfortably. Denies any chest pain. No further symptoms of chest discomfort. He is resting comfortably without symptoms. PAST MEDICAL HISTORY: Remarkable for bronchial asthma. He has had some appendectomy and hernia surgery. SOCIAL HISTORY: Patient does not smoke at this time. He used to smoke in the past apparently. No alcohol usage. ALLERGIES: None. MEDICATIONS: None. REVIEW OF SYSTEMS: Remarkable for quite a bit of physical activity. No chest discomfort with activity in the past. He has no hematemesis, melena, genitourinary fever with chills or cough with expectoration. EXAMINATION: Blood pressure is 118/70, pulse rate is 80 per minute and regular. HEENT: Unremarkable. Fundus was not examined by me. NECK: Supple. There is no JVD. I do not hear a carotid bruit. There is no thyromegaly. Heart exam reveals S1, S2 heard normally without a rub, murmur or gallop. Lungs are clear. Abdomen is soft, nontender. Lower extremities reveal normal pulses. No edema. Central nervous system is normal. EKG revealed sinus mechanism, no acute changes. LABORATORY DATA: Reveals that his troponins are normal. Thyroid function test is also within normal limits. D-dimer is normal. IMPRESSION: 1. Atypical chest pain. 2. Probably heatstroke with some exertion from which she has recovered. 3. History of obesity. RECOMMENDATIONS: I am recommending that we can discharge the patient today, perform a regular stress test and echocardiogram as an outpatient. I explained to the patient not to return to work unless he has the testing performed and not to do any strenuous activity and avoid the exposure to too much heat and also drink plenty of water. The patient can be discharged today with the understanding he will have a stress test and echocardiogram in a week. Thank you very much for the consult. RONY / HCAD: [id number] /
== END 2018-04-13 10:50 | disposition home or self-care (01) ==
LOC: EC 20:04 → 6SEL 22:30
PROVIDERS: ADMIT Internal Medicine; ATTEND Internal Medicine
DX: R07.89 Other chest pain (principal); R10.9 Unspecified abdominal pain; R42 Dizziness and giddiness; R11.2 Nausea with vomiting, unspecified; R51 Headache; T67.5XXA Heat exhaustion, unspecified, initial encounter; X30.XXXA Exposure to excessive natural heat, initial encounter; G43.909 Migraine, unspecified, not intractable, without status migrainosus; J45.909 Unspecified asthma, uncomplicated; R94.31 Abnormal electrocardiogram [ECG] [EKG]; R74.8 Abnormal levels of other serum enzymes; Z87.891 Personal history of nicotine dependence; E66.01 Morbid (severe) obesity due to excess calories; Z68.41 Body mass index [BMI] 40.0-44.9, adult; Z87.19 Personal history of other diseases of the digestive system; Z79.899 Other long term (current) drug therapy; Z79.1 Long term (current) use of non-steroidal anti-inflammatories (NSAID)
CPT/HCPCS: 99285; 96361 ×2; 96375 ×3; 96376 ×3; 96365 ×2; 36415; 93005; 85379; 80053; 84443; 82550 ×2; 82553 ×2; 83735; 84484 ×2; 85025 ×2; 85610; 85730 ×2; 81003; 71046; G0378 ×2; J2270 ×2; J1644 ×3; J2405

== ENCOUNTER → 2018-05-12 | Outpatient (CLI) | payer OTHER ==
--- NOTE | 2018-05-12 13:46 | PN ---
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 He is coming in for a compliancy check regarding his GREGORIO treatment. The patient has been diagnosed having moderate to severe GREGORIO with an AHI of 20 and disease is worse while supine and during REM sleep. He was having increased snoring with some limited hypersomnia and sleepiness. Based on that, the patient was given CPAP therapy and currently is on CPAP pressure of 6 cm of water. On today's evaluation, the patient demonstrates adequate use of CPAP with an average CPAP use of 5.1 hours per night. His CPAP use for more than 4 hours is approaching 70%. He had skipped a few days of CPAP use as the patient was having sunburn and he was unable to wear the mask. Other than that, the patient has been doing well. The patient has been trying to increase his average time of sleep for CPAP and his [place] score is 0 and does not fall asleep at all during activities of day-to-day life. No falling asleep while driving. No other complaints otherwise for now. His weight has been up by a few pounds since his last evaluation. REVIEW OF SYSTEMS: 12-point review of system was done. Positive findings are mentioned above history of present illness. His snoring has completely recovered. He is using his CPAP utilizing a nose pillow. No morning headaches. No altered mentation. No daytime drowsiness. No falling asleep while doing day-to-day activities. PHYSICAL EXAMINATION: His BP is 135/79, pulse 58, respirations 14, temperature is 97, saturation is 97% on room air. [place]field score is 0, weight is 232. GENERAL APPEARANCE: Calm, comfortable. No acute distress. Head is atraumatic, normocephalic. Neck is supple. There is no JVD. No goiter or neck masses. Lungs are clear to auscultation. Heart sounds are regular rate and rhythm. Normal S1, S2. No S3. No murmurs. ABDOMEN: Soft, nontender. No organomegaly. EXTREMITIES: No edema. No cyanosis or clubbing. NEUROLOGIC: The patient is alert and oriented x3. No focal neurological deficits. PSYCHIATRIC: Negative for any anxiety or depression. IMPRESSION: 1. Symptomatic obstructive sleep apnea with an AHI of 20 currently on CPAP pressure of 6 cm of water with excellent clinical response and compliancy. 2. Obesity with a BMI of 45, current weight is 232. 3. straight truck driver. PLAN: 1. Continue CPAP therapy at pressure of 6. 2. Encourage weight loss. 3. Compliancy was checked. 4. The patient is averaging more than 5.1 hours of CPAP use per night. 5. Follow up with [facility] regarding a DOC certification. The patient should be cleared by now. 6. See me back in a year's time and follow up earlier if needed. MMODL / IJN: [id number] /
== END ==
LOC: SLEEP 10:57
PROVIDERS: ATTEND Internal Medicine Critical Care Medicine
DX: G47.33 Obstructive sleep apnea (adult) (pediatric) (principal); E66.9 Obesity, unspecified; Z99.89 Dependence on other enabling machines and devices; Z68.42 Body mass index [BMI] 45.0-49.9, adult

== ENCOUNTER 2018-12-14 08:20 | Day surgery (SDC) | payer OTHER ==
[2018-12-10 15:12] VITALS: BMI 44.7
[~2018-12-14 08:20] MED LIST changes: +LIDOCAINE 1% 20 ML VIAL (10MG/ML) FOR IV START INTRADERMA PRN
[2018-12-14 08:49] VITALS: TEMP 97.8
[2018-12-14] MEDS ORDERED: LIDOCAINE 1% 20 ML VIAL (10MG/ML) FOR IV START INTRADERMA ONE (08:56)
[2018-12-14] MEDS ORDERED: LACTATED RINGERS 1,000 ML IV ONE (08:56)
[2018-12-14] MEDS ORDERED: PROPOFOL 10 MG/ML 20 ML VIAL IV ONE (10:03)
[2018-12-14] MEDS ORDERED: MIDAZOLAM 2 MG/2 ML VIAL ONE (10:03)
--- NOTE | 2018-12-14 10:10 | P.GSHP ---
History of Present Illness H&P Date: 12/14/18 Chief Complaint: History of colon cancer This a 28-year-old male with a previous history of colon cancer. Patient presents today for colonoscopy. Past Medical History Past Medical History: Asthma Additional Past Medical History / Comment(s): Hx asthma as a child, since resolved. Hx migraines. History of Any Multi-Drug Resistant Organisms: None Reported Past Surgical History: Appendectomy, Bowel Resection, Hernia Repair Additional Past Surgical History / Comment(s): Surgery to remove benign mass from colon Past Anesthesia/Blood Transfusion Reactions: No Reported Reaction Smoking Status: Former smoker - Past Family History Mother Family Medical History: No Reported History Medications and Allergies Home Medications Medication Instructions Recorded Confirmed Type No Known Home Medications 12/10/18 12/10/18 History Allergies Allergy/AdvReac Type Severity Reaction Status Date / Time No Known Allergies Allergy Verified 12/10/18 14:57 Surgical - Exam Vital Signs Temp Pulse Resp BP Pulse Ox 97.8 F 71 18 142/94 98 12/14/18 08:49 12/14/18 08:49 12/14/18 08:49 12/14/18 08:49 12/14/18 08:49 - General well developed, well nourished, no distress - Eyes PERRL - ENT normal pinna - Neck no masses - Respiratory normal expansion - Cardiovascular Rhythm: regular - Abdomen Abdomen: soft, non tender Assessment and Plan Assessment: History of colon cancer. We'll perform colonoscopy.
--- NOTE | 2018-12-14 10:25 | P.OP ---
Date of Procedure: 12/14/18 Preoperative Diagnosis: History of carcinoid tumor Postoperative Diagnosis: Normal colonoscopy status post right colectomy Procedure(s) Performed: Colonoscopy Anesthesia: MAC Surgeon: Benji Jimenez Pathology: none sent Condition: stable Disposition: PACU Description of Procedure: No PROCEDURE: The patient was placed on the endoscopy table in the lateral position. Digital rectal examination was performed which revealed no abnormalities. The prostate was symmetrical without nodules. Flexible colonoscope was then placed in the patient's anus and passed throughout the entire colon. The ileocolonic anastomosis visualized. The transverse colon, descending colon, sigmoid colon and rectum appeared normal. There is no evidence of any recurrent tumor. The scope was withdrawn for patient.
[2018-12-14 10:40] VITALS: BP 111/74; PULSE 72; RESP 16
== END 2018-12-14 11:02 | disposition home or self-care (01) ==
LOC: ORWHC2ENDO 08:20
PROVIDERS: ATTEND Surgery
DX: Z12.11 Encounter for screening for malignant neoplasm of colon (principal); Z85.030 Personal history of malignant carcinoid tumor of large intestine; Z90.49 Acquired absence of other specified parts of digestive tract; Z87.891 Personal history of nicotine dependence
CPT/HCPCS: J2250; J2704; G0105

== ENCOUNTER 2019-02-23 20:11 | Emergency (ER) | payer OTHER ==
[2019-02-23 20:16] VITALS: TEMP 99.7
[2019-02-23] MEDS ORDERED: IBUPROFEN 600 MG TAB PO STA (20:25)
[2019-02-23] MEDS ORDERED: SODIUM CHLORIDE 0.9% 1,000 ML IV STA (20:46)
[2019-02-23] MEDS ORDERED: ONDANSETRON 4 MG/2 ML VIAL IVP STA (20:46)
--- NOTE | 2019-02-23 21:07 | ED ---
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 Patient reports he's been having sinus issues for the past week. A slight cough. Patient states that his sinuses and bothering him as much today. Patient had respiratory low-grade temperature. No recent Motrin or Tylenol given. - Related Data Previous Rx's Medication Instructions Recorded Azithromycin [Zithromax Z-pack] 250 mg PO DIRECTED #6 tab 02/23/19 Ibuprofen [Motrin] 600 mg PO Q6HR PRN #20 tab 02/23/19 Allergies Allergy/AdvReac Type Severity Reaction Status Date / Time triamcinolone [From Kenalog] Allergy Rash/Hives Verified 02/23/19 20:53 Review of Systems ROS Statement: Those systems with pertinent positive or pertinent negative responses have been documented in the HPI. ROS Other: All systems not noted in ROS Statement are negative. EKG Findings - EKG Comments: EKG Findings:: EKG shows sinus tachycardia, nonspecific T-wave abnormality. Abnormal EKG. Ventricular rate of 10 4 bpm. MN interval is 182 ms. QRS duration 92 ms. QT QTc is 324/426 most seconds. Past Medical History Past Medical History: Asthma Additional Past Medical History / Comment(s): Hx asthma as a child, since resolved. Hx migraines. History of Any Multi-Drug Resistant Organisms: None Reported Past Surgical History: Appendectomy, Bowel Resection, Hernia Repair Additional Past Surgical History / Comment(s): Surgery to remove benign mass from colon Past Anesthesia/Blood Transfusion Reactions: No Reported Reaction Past Psychological History: Depression Smoking Status: Former smoker Past Alcohol Use History: Occasional Past Drug Use History: None Reported - Past Family History Mother Family Medical History: No Reported History General Exam - General Exam Comments Initial Comments: Patient is a 28 year old male, no distress. Limitations: no limitations General appearance: alert, in no apparent distress Head exam: Present: atraumatic Eye exam: Present: normal appearance, PERRL, EOMI. Absent: scleral icterus, conjunctival injection, periorbital swelling ENT exam: Present: normal exam, mucous membranes moist Neck exam: Present: normal inspection. Absent: tenderness, meningismus, lymphadenopathy Respiratory exam: Present: normal lung sounds bilaterally. Absent: respiratory distress, wheezes, rales, rhonchi, stridor Cardiovascular Exam: Present: regular rate, normal rhythm, normal heart sounds. Absent: systolic murmur, diastolic murmur, rubs, gallop, clicks GI/Abdominal exam: Present: soft, normal bowel sounds. Absent: distended, tenderness, guarding, rebound, rigid Extremities exam: Present: normal inspection, full ROM, normal capillary refill. Absent: tenderness, pedal edema, joint swelling, calf tenderness Back exam: Present: normal inspection Neurological exam: Present: alert, oriented X3, CN II-XII intact Psychiatric exam: Present: normal affect, normal mood Skin exam: Present: warm, dry, intact, normal color. Absent: rash Course Vital Signs 02/23/19 02/23/19 02/23/19 20:14 21:59 22:01 Temperature 99.7 F H Pulse Rate 102 H 95 Respiratory 20 16 Rate Blood Pressure 119/78 141/75 O2 Sat by Pulse 100 96 Oximetry 02/23/19 23:41 Temperature Pulse Rate 77 Respiratory 16 Rate Blood Pressure 127/80 O2 Sat by Pulse 96 Oximetry Chest Pain MDM - MDM 28-year-old male presents raise worse today with complaints of chest pain. Symptoms started at 5 PM. Patient reports that he slightly felt nauseated today. He's been dealing with upper respiratory symptoms and sinus congestion for the past week. The same Patient is given IV fluids labwork obtained. EKG has no acute changes. Subsequent troponin are negative. Feels better after Toradol. Patient is likely suffering from viral illness with symptoms. Discussed some chest pain seems to be costochondritis. Patient will be discharged at this time with follow-up with primary care doctor. Discussed low risk for cardiac origin normal EKG and chest x-ray as well as -2 troponins. Patient agrees to treatment plan will comply. Return parameters were discussed. Disposition Clinical Impression: URI (upper respiratory infection), Chest pain Disposition: HOME SELF-CARE Condition: Good Instructions (If sedation given, give patient instructions): Costochondritis (ED), Upper Respiratory Infection (DC) Additional Instructions: Patient has a rest, increase fluid intake. Take Motrin and Tylenol. He can start taking the antibiotic of cough or sinus congestion continues to persist for another 2-3 days. Patient should follow up with your primary care doctor. Prescriptions: Ibuprofen [Motrin] 600 mg PO Q6HR PRN #20 tab PRN Reason: Pain Azithromycin [Zithromax Z-pack] 250 mg PO DIRECTED #6 tab Is patient prescribed a controlled substance at d/c from ED?: No Referrals: Miriam Bernal MD [Primary Care Provider] - 1-2 days Time of Disposition: 23:49
[2019-02-23 21:29] LABS: INR 0.9 (<1.2); Partial Thromboplastin Time 25.5 sec (22.0-30.0)
[2019-02-23 21:30] LABS: ALT 40 U/L (21-72); AST 31 U/L (17-59); Albumin 4.3 g/dL (3.5-5.0); Alkaline Phosphatase 120 U/L (38-126); Anion Gap 12 mmol/L; Blood Urea Nitrogen 15 mg/dL (9-20); Calcium 9.6 mg/dL (8.4-10.2); Carbon Dioxide 23 mmol/L (22-30); Chloride 103 mmol/L (98-107); Glucose 90 mg/dL (74-99); Lipase 38 U/L (23-300); Magnesium 1.8 mg/dL (1.6-2.3); Potassium 4.2 mmol/L (3.5-5.1); Sodium 138 mmol/L (137-145); Total Protein 7.1 g/dL (6.3-8.2)
[2019-02-23 21:31] LABS: Basophils % (A) 0 %; Eosinophils # (A) 0.1 k/uL (0-0.7); Eosinophils % (A) 1 %; HCT 46.5 % (39.0-53.0); HGB 15.9 gm/dL (13.0-17.5); Lymphocytes # (A) 0.5 k/uL (1.0-4.8); Lymphocytes % (A) 6 %; MCH 29.7 pg (25.0-35.0); MCHC 34.2 g/dL (31.0-37.0); MCV 86.7 fL (80.0-100.0); Mean Platelet Volume 8.2; Monocytes # (A) 0.3 k/uL (0-1.0); Monocytes % (A) 4 %; Neutrophils # (A) 6.9 k/uL (1.3-7.7); Neutrophils % (A) 89 %; Platelet Count 208 k/uL (150-450); RBC 5.37 m/uL (4.30-5.90); RDW 14.2 % (11.5-15.5); WBC 7.8 k/uL (3.8-10.6)
--- NOTE | 2019-02-23 21:31 | XR ---
EXAMINATION: XR chest 2V DATE AND TIME: 02/23/2019 9:23 PM CLINICAL INDICATION: PHH; Pain TECHNIQUE: Departmental protocol COMPARISON: 04/12/2018 FINDINGS: The lungs are clear. The pleural spaces are negative. The cardiac silhouette is not enlarged. The remainder of the mediastinal silhouette is unremarkable. The skeletal structures and soft tissues are negative for acute findings. IMPRESSION: NO ACUTE PROCESS.
[2019-02-23 22:01] VITALS: RESP 16
[2019-02-23 23:37] LABS: Appearance,Urine Clear (Clear); Bilirubin,Urine Negative (Negative); Blood,Urine Negative (Negative); Color,Urine Yellow; Glucose,Urine (UA) Negative (Negative); Ketones,Urine 1+ (Negative); Leukocyte Esterase,Urine Negative (Negative); Nitrite,Urine Negative (Negative); PH, Urine 5.5 (5.0-8.0); Protein,Urine Negative (Negative); Specific Gravity,Urine 1.025 (1.001-1.035); Urobilinogen,Urine <2.0 mg/dL (<2.0)
[2019-02-23 23:42] VITALS: BP 127/80; PULSE 77
== END 2019-02-24 00:01 | disposition home or self-care (01) ==
LOC: EC 20:11
DX: J06.9 Acute upper respiratory infection, unspecified (principal); R07.9 Chest pain, unspecified; Z88.8 Allergy status to other drugs, medicaments and biological substances; Z87.891 Personal history of nicotine dependence
CPT/HCPCS: 36415; 71046; 80053; 81003; 83690; 83735; 84484; 85025; 85610; 85730; 87502; 93005; 96360; 99285

== ENCOUNTER 2019-02-26 10:27 | Emergency (ER) | payer OTHER ==
[2019-02-26 10:46] VITALS: RESP 18
[2019-02-26] MEDS ORDERED: MORPHINE SULFATE 4 MG/ML SYRINGE IV STA (11:22)
[2019-02-26] MEDS ORDERED: ONDANSETRON 4 MG/2 ML VIAL IVP STA (11:22)
[2019-02-26] MEDS ORDERED: SODIUM CHLORIDE 0.9% 1,000 ML IV STA (11:22)
[2019-02-26] MEDS ORDERED: PANTOPRAZOLE 40 MG/10 ML VIAL IVP STA (11:22)
--- NOTE | 2019-02-26 11:28 | ED ---
Abdominal Pain HPI - General Chief Complaint: Abdominal Pain Stated Complaint: Abd.pain/diarrhea Time Seen by Provider: 02/26/19 10:49 Source: patient, RN notes reviewed, old records reviewed Mode of arrival: ambulatory Limitations: no limitations - History of Present Illness Initial Comments: This is a 28-year-old male the ER for evaluation. Patient resents today for evaluation of abdominal pain, patient breathes may be his gallbladder. Patient has a surgical history and his abdomen including benign tumor removal and bowel resection. has nausea no vomiting. No fevers. Patient seen in ER for same similar type pain 2 days ago was diagnosed with bronchitis and again started on a Z-Todd. No improvement of symptoms. No fevers. No change in bowel movements. No family members with similar complaints MD Complaint: abdominal pain -: days(s) Location: diffuse, LUQ, RUQ, epigastric Radiation: LUQ, RUQ Migration to: epigastric Severity: mild Severity scale (1-10): 2 Quality: cramping, aching Consistency: intermittent, colicky Improves With: nothing Worsens With: nothing Associated Symptoms: nausea - Related Data Home Medications Medication Instructions Recorded Confirmed Azithromycin [Zithromax Z-pack] See Taper PO DAILY 02/26/19 02/26/19 Previous Rx's Medication Instructions Recorded Ibuprofen [Motrin] 600 mg PO Q6HR PRN #20 tab 02/23/19 Allergies Allergy/AdvReac Type Severity Reaction Status Date / Time triamcinolone [From Kenalog] Allergy Rash/Hives Verified 02/26/19 10:52 Review of Systems ROS Statement: Those systems with pertinent positive or pertinent negative responses have been documented in the HPI. ROS Other: All systems not noted in ROS Statement are negative. Past Medical History Past Medical History: Asthma Additional Past Medical History / Comment(s): Hx asthma as a child, since resolved. Hx migraines. History of Any Multi-Drug Resistant Organisms: None Reported Past Surgical History: Appendectomy, Bowel Resection, Hernia Repair Additional Past Surgical History / Comment(s): Surgery to remove benign mass from colon Past Anesthesia/Blood Transfusion Reactions: No Reported Reaction Past Psychological History: Depression Smoking Status: Former smoker Past Alcohol Use History: Occasional Past Drug Use History: None Reported - Past Family History Mother Family Medical History: No Reported History General Exam Limitations: no limitations General appearance: alert, in no apparent distress Head exam: Present: atraumatic, normocephalic, normal inspection Eye exam: Present: normal appearance, PERRL, EOMI. Absent: scleral icterus, conjunctival injection, periorbital swelling ENT exam: Present: normal exam, mucous membranes moist Neck exam: Present: normal inspection. Absent: tenderness, meningismus, lymphadenopathy Respiratory exam: Present: normal lung sounds bilaterally. Absent: respiratory distress, wheezes, rales, rhonchi, stridor Cardiovascular Exam: Present: regular rate, normal rhythm, normal heart sounds. Absent: systolic murmur, diastolic murmur, rubs, gallop, clicks GI/Abdominal exam: Present: soft, normal bowel sounds. Absent: distended, tenderness, guarding, rebound, rigid Extremities exam: Present: normal inspection, full ROM, normal capillary refill. Absent: tenderness, pedal edema, joint swelling, calf tenderness Back exam: Present: normal inspection Neurological exam: Present: alert, oriented X3, CN II-XII intact Psychiatric exam: Present: normal affect, normal mood Skin exam: Present: warm, dry, intact, normal color. Absent: rash Course Vital Signs 02/26/19 10:44 Temperature 97.7 F Pulse Rate 79 Respiratory 18 Rate Blood Pressure 120/83 O2 Sat by Pulse 98 Oximetry - Reevaluation(s) Reevaluation #1: 02/26/19 12:38 Medical record is reviewed Reevaluation #2: 02/26/19 12:38 Patient symptoms are improved Reevaluation #3: 02/26/19 13:35 Patient given education regarding diet gallbladder disease Medical Decision Making - Medical Decision Making 28 male the ER with signs of biliary colic, no acute cholecystitis. No Lockwood sign on exam, labwork values are normal does have significant gallbladder wall, will follow-up with surgery on outpatient basis - Lab Data Result diagrams: 02/26/19 11:45 02/26/19 11:45 Lab Results 02/26/19 02/26/19 02/26/19 Range/Units 11:45 11:45 11:45 WBC 5.9 (3.8-10.6) k/uL RBC 5.24 (4.30-5.90) m/uL Hgb 15.2 (13.0-17.5) gm/dL Hct 45.6 (39.0-53.0) % MCV 87.0 (80.0-100.0) fL MCH 28.9 (25.0-35.0) pg MCHC 33.3 (31.0-37.0) g/dL RDW 14.1 (11.5-15.5) % Plt Count 193 (150-450) k/uL Neutrophils % 75 % Lymphocytes % 13 % Monocytes % 8 % Eosinophils % 3 % Basophils % 0 % Neutrophils # 4.5 (1.3-7.7) k/uL Lymphocytes # 0.8 L (1.0-4.8) k/uL Monocytes # 0.5 (0-1.0) k/uL Eosinophils # 0.2 (0-0.7) k/uL Basophils # 0.0 (0-0.2) k/uL Sodium 137 (137-145) mmol/L Potassium 4.2 (3.5-5.1) mmol/L Chloride 105 (98-107) mmol/L Carbon Dioxide 23 (22-30) mmol/L Anion Gap 9 mmol/L BUN 14 (9-20) mg/dL Creatinine 1.14 (0.66-1.25) mg/dL Est GFR (CKD-EPI)AfAm >90 (>60 ml/min/1.73 sqM) Est GFR (CKD-EPI)NonAf 89 (>60 ml/min/1.73 sqM) Glucose 88 (74-99) mg/dL Calcium 9.2 (8.4-10.2) mg/dL Total Bilirubin 2.1 H (0.2-1.3) mg/dL AST 33 (17-59) U/L ALT 40 (21-72) U/L Alkaline Phosphatase 95 (38-126) U/L Troponin I <0.012 (0.000-0.034) ng/mL Total Protein 6.6 (6.3-8.2) g/dL Albumin 4.0 (3.5-5.0) g/dL Amylase <30 L (30-110) U/L Lipase 31 (23-300) U/L Urine Color Urine Appearance (Clear) Urine pH (5.0-8.0) Ur Specific Vian (1.001-1.035) Urine Protein (Negative) Urine Glucose (UA) (Negative) Urine Ketones (Negative) Urine Blood (Negative) Urine Nitrite (Negative) Urine Bilirubin (Negative) Urine Urobilinogen (<2.0) mg/dL Ur Leukocyte Esterase (Negative) 02/26/19 Range/Units 12:10 WBC (3.8-10.6) k/uL RBC (4.30-5.90) m/uL Hgb (13.0-17.5) gm/dL Hct (39.0-53.0) % MCV (80.0-100.0) fL MCH (25.0-35.0) pg MCHC (31.0-37.0) g/dL RDW (11.5-15.5) % Plt Count (150-450) k/uL Neutrophils % % Lymphocytes % % Monocytes % % Eosinophils % % Basophils % % Neutrophils # (1.3-7.7) k/uL Lymphocytes # (1.0-4.8) k/uL Monocytes # (0-1.0) k/uL Eosinophils # (0-0.7) k/uL Basophils # (0-0.2) k/uL Sodium (137-145) mmol/L Potassium (3.5-5.1) mmol/L Chloride (98-107) mmol/L Carbon Dioxide (22-30) mmol/L Anion Gap mmol/L BUN (9-20) mg/dL Creatinine (0.66-1.25) mg/dL Est GFR (CKD-EPI)AfAm (>60 ml/min/1.73 sqM) Est GFR (CKD-EPI)NonAf (>60 ml/min/1.73 sqM) Glucose (74-99) mg/dL Calcium (8.4-10.2) mg/dL Total Bilirubin (0.2-1.3) mg/dL AST (17-59) U/L ALT (21-72) U/L Alkaline Phosphatase (38-126) U/L Troponin I (0.000-0.034) ng/mL Total Protein (6.3-8.2) g/dL Albumin (3.5-5.0) g/dL Amylase (30-110) U/L Lipase (23-300) U/L Urine Color Yellow Urine Appearance Clear (Clear) Urine pH 6.0 (5.0-8.0) Ur Specific Vian 1.025 (1.001-1.035) Urine Protein Trace H (Negative) Urine Glucose (UA) Negative (Negative) Urine Ketones Negative (Negative) Urine Blood Negative (Negative) Urine Nitrite Negative (Negative) Urine Bilirubin Negative (Negative) Urine Urobilinogen <2.0 (<2.0) mg/dL Ur Leukocyte Esterase Negative (Negative) Disposition Clinical Impression: Biliary colic Disposition: HOME SELF-CARE Condition: Good Instructions (If sedation given, give patient instructions): Biliary Colic (ED), Low Fat Diet (ED) Is patient prescribed a controlled substance at d/c from ED?: No Referrals: Puma Drake MD [Medical Doctor] - 1-2 days
[2019-02-26 12:04] LABS: Basophils % (A) 0 %; Eosinophils # (A) 0.2 k/uL (0-0.7); Eosinophils % (A) 3 %; HCT 45.6 % (39.0-53.0); HGB 15.2 gm/dL (13.0-17.5); Lymphocytes # (A) 0.8 k/uL (1.0-4.8); Lymphocytes % (A) 13 %; MCH 28.9 pg (25.0-35.0); MCHC 33.3 g/dL (31.0-37.0); Mean Platelet Volume 8.2; Monocytes # (A) 0.5 k/uL (0-1.0); Monocytes % (A) 8 %; Neutrophils # (A) 4.5 k/uL (1.3-7.7); Neutrophils % (A) 75 %; Platelet Count 193 k/uL (150-450); RBC 5.24 m/uL (4.30-5.90); RDW 14.1 % (11.5-15.5); WBC 5.9 k/uL (3.8-10.6)
[2019-02-26 12:16] LABS: ALT 40 U/L (21-72); AST 33 U/L (17-59); Alkaline Phosphatase 95 U/L (38-126); Amylase <30 U/L (30-110); Anion Gap 9 mmol/L; Blood Urea Nitrogen 14 mg/dL (9-20); Calcium 9.2 mg/dL (8.4-10.2); Carbon Dioxide 23 mmol/L (22-30); Chloride 105 mmol/L (98-107); Glucose 88 mg/dL (74-99); Lipase 31 U/L (23-300); Potassium 4.2 mmol/L (3.5-5.1); Sodium 137 mmol/L (137-145); Total Bilirubin 2.1 mg/dL (0.2-1.3); Total Protein 6.6 g/dL (6.3-8.2)
--- NOTE | 2019-02-26 12:33 | US ---
EXAMINATION TYPE: US gallbladder DATE OF EXAM: 02/26/2019 COMPARISON: NONE CLINICAL HISTORY: Pain. Ongoing chest pain, arm tingling EXAM MEASUREMENTS: Liver Length: 16.1 cm Gallbladder Wall: 0.5 cm CBD: 0.5 cm Right Kidney: 10.3 x 5.0 x 5.0 cm Pancreas: not seen due to bowel gas Liver: wnl Gallbladder: thickened inflamed GB wall with no obvious signs of stones seen. Evidence for sonographic Lockwood's sign: no CBD: wnl Right Kidney: wnl IMPRESSION: 1. Gallbladder wall thickening without definite cholelithiasis.
[2019-02-26 12:34] LABS: Appearance,Urine Clear (Clear); Bilirubin,Urine Negative (Negative); Blood,Urine Negative (Negative); Color,Urine Yellow; Glucose,Urine (UA) Negative (Negative); Ketones,Urine Negative (Negative); Leukocyte Esterase,Urine Negative (Negative); Nitrite,Urine Negative (Negative); Protein,Urine Trace (Negative); Specific Gravity,Urine 1.025 (1.001-1.035); Urobilinogen,Urine <2.0 mg/dL (<2.0)
--- NOTE | 2019-02-26 13:33 | CT ---
EXAMINATION TYPE: CT abdomen pelvis w con DATE OF EXAM: 02/26/2019 COMPARISON: None HISTORY: Abdominal pain, diarrhea CT DLP: 2050.5 mGycm CONTRAST: CT scan of the abdomen and pelvis is performed with Oral Contrast and with IV Contrast, patient injec camilo with 100 ml mL of Isovue 300. FINDINGS: LUNG BASES-: No visible nodule. No infiltrate. LIVER/GB: No calcified gallstones. No space occupying hepatic lesion. Biliary tree is of normal ca liber. PANCREAS: No inflammation. No distinct mass. SPLEEN: No splenic enlargement. No lesion seen. ADRENALS: No nodule. No thickening. KIDNEYS/BLADDER: No hydronephrosis. No nephrolithiasis. No distinct renal mass. Urinary bladder g rossly unremarkable. BOWEL: Postoperative changes right hemicolon. Normal bowel caliber. No inflammation. GENITAL ORGANS: No gross abnormality. LYMPH NODES: No greater than 1cm abdominal or pelvic lymph nodes are appreciated. AORTA: No significant abnormality. OSSEOUS STRUCTURES: No significant abnormality is seen. OTHER: Fat-containing umbilical hernia measuring 6 x 6.2 cm. IMPRESSION: 1. Fat-containing umbilical hernia measuring 6 x 6.2 cm.
[2019-02-26 13:55] VITALS: BP 139/81; PULSE 73; TEMP 98.4
== END 2019-02-26 13:54 | disposition home or self-care (01) ==
LOC: EC 10:27
DX: K80.50 Calculus of bile duct without cholangitis or cholecystitis without obstruction (principal); Z87.891 Personal history of nicotine dependence; Z88.8 Allergy status to other drugs, medicaments and biological substances; Z90.49 Acquired absence of other specified parts of digestive tract
CPT/HCPCS: 36415; 80053; 82150; 83690; 84484; 85025; 81003; 87086; 76705; 74177; 99285; 96374; 96375 ×2; 96361; J2270; J2405; C9113; Q9967

== ENCOUNTER 2019-03-22 08:08 | Day surgery (SDC) | payer BC, OTHER ==
[2019-03-18 10:47] VITALS: BMI 43.4
[~2019-03-22 08:08] MED LIST changes: +DEXAMETHASONE SOD PHOSPHATE 10 MG/ML 1 ML VIAL IV ONE; +HEPARIN SODIUM,PORCINE 5,000 UNIT/ML 1 ML VIAL SQ ONE; +MIDAZOLAM 2 MG/2 ML VIAL IV PRN; +ONDANSETRON 4 MG/2 ML VIAL IVP ONE; +ceFAZolin 3 GM in SODIUM CHLORIDE 0.9% 100 ML IVPB ONE; +fentaNYL (PF) 50 MCG/ML 2 ML AMP IV PRN
[2019-03-22] MEDS ORDERED: NEOSTIGMINE 1 MG/ML 10 ML VIAL ONE (08:59)
[2019-03-22] MEDS ORDERED: ONDANSETRON 4 MG/2 ML VIAL ONE (08:59)
[2019-03-22] MEDS ORDERED: KETOROLAC 30 MG/ML 1 ML VIAL ONE (08:59)
[2019-03-22] MEDS ORDERED: SUCCINYLCHOLINE CHLORIDE VIAL 200 MG/10 ML VIAL IV ONE (08:59)
[2019-03-22] MEDS ORDERED: ROCURONIUM BROMIDE 10 MG/ML 10 ML VIAL IV ONE (08:59)
[2019-03-22] MEDS ORDERED: fentaNYL (PF) 50 MCG/ML 2 ML AMP ONE (08:59)
[2019-03-22] MEDS ORDERED: MIDAZOLAM 2 MG/2 ML VIAL ONE (08:59)
[2019-03-22] MEDS ORDERED: PROPOFOL 10 MG/ML 20 ML VIAL IV ONE (08:59)
[2019-03-22] MEDS ORDERED: GLYCOPYRROLATE 0.2 MG/ML 2 ML VIAL ONE (08:59)
[2019-03-22] MEDS ORDERED: LIDOCAINE 1% INJ 10MG/ML (20 ML MDV) ONE (08:59)
--- NOTE | 2019-03-22 09:16 | P.GSHP ---
History of Present Illness H&P Date: 03/22/19 Chief Complaint: Right upper quadrant pain This a 28-year-old male who presents today for laparoscopic cholecystectomy. Patient's echo with right upper quadrant pain. His recent ultrasound shows a thickened gallbladder wall. Past Medical History Past Medical History: Asthma Additional Past Medical History / Comment(s): Hx asthma as a child, since resolved. Hx migraines. gallbladder disorder History of Any Multi-Drug Resistant Organisms: None Reported Past Surgical History: Appendectomy, Bowel Resection, Hernia Repair Additional Past Surgical History / Comment(s): Surgery to remove benign mass from colon. COLONOSCOPY Past Anesthesia/Blood Transfusion Reactions: No Reported Reaction Smoking Status: Former smoker - Past Family History Mother Family Medical History: No Reported History Medications and Allergies Home Medications Medication Instructions Recorded Confirmed Type No Known Home Medications 03/18/19 03/22/19 History Allergies Allergy/AdvReac Type Severity Reaction Status Date / Time triamcinolone [From Kenalog] Allergy Rash/Hives Verified 03/22/19 08:18 Surgical - Exam Vital Signs Temp Pulse Resp BP Pulse Ox 97.7 F 63 16 136/86 98 03/22/19 08:22 03/22/19 08:22 03/22/19 08:22 03/22/19 08:22 03/22/19 08:22 - General well developed, well nourished, no distress - Eyes PERRL - ENT normal pinna - Neck no masses - Respiratory normal expansion - Cardiovascular Rhythm: regular - Abdomen Abdomen: soft, non tender Assessment and Plan Assessment: Right upper quadrant pain Thickened gallbladder wall Chronically cholecystitis We'll perform laparoscopic cholecystectomy.
[2019-03-22] MEDS ORDERED: BUPIVACAIN-EPI 0.5%-1:200,000 30 ML VIAL SQ ONE (09:24)
--- NOTE | 2019-03-22 09:52 | P.OP ---
Date of Procedure: 03/22/19 Preoperative Diagnosis: Cholecystitis Postoperative Diagnosis: Cholecystitis Procedure(s) Performed: Laparoscopic cholecystectomy Anesthesia: BOBBY Surgeon: Benji Jimenez Estimated Blood Loss (ml): 5 Pathology: other (Gallbladder) Condition: stable Disposition: PACU Description of Procedure: The patient was placed on the operating table. The patient received a general endotracheal tube anesthesia. The patients abdomen was prepped and draped in the usual sterile fashion. The patient had an umbilical hernia. Through an supraumbilical stab incision, the fascia of the anterior abdominal wall was grasped with a pair of Kochers and then the Veress needle was placed in the peritoneal cavity. Position of the Veress needle was confirmed with positive drop test. The abdomen was then insufflated. After adequate insufflation, the 10 mm trocar was placed in the peritoneal cavity. Following this the laparoscope was placed in the peritoneal cavity. The patient was placed in the head-up, right side up position and then a 5 mm trocar was placed in the right lateral and right subcostal position under direct visualization. A 8 mm trocar was placed in the epigastric position. The gallbladder was grasped in the fundus and infundibulum. Traction on the gallbladder was placed in the lateral and the cephalad positions. The triangle of Calot was visualized.. The cystic duct was bluntly dissected until the union of the cystic duct and common bile duct was seen. A critical view of safety was achieved. The cystic duct was then divided and sealed with the Harmonic scissors. A PDS Endoloop was then placed throughout the cystic duct stump. The cystic artery divided and sealed with the Harmonic scissors. The gallbladder was then removed from the liver bed using Harmonic scissors. The gallbladder was then extracted through the epigastric port site. Operative field was checked for any bleeding spots and Harmonic scissors was used to coagulate the liver bed. The abdomen was irrigated. The trocars were removed. The skin was closed using interrupted 3- 0 Vicryl suture. Dermabond dressing were applied. The patient tolerated the procedure well.
[2019-03-22] MEDS ORDERED: LACTATED RINGERS 1,000 ML IV ONE (10:03)
[2019-03-22 10:07] VITALS: TEMP 97.9
[2019-03-22] MEDS: HYDROmorphone 0.5 MG/0.5 ML SYRINGE IVP PRN ×3 (10:12→10:30)
[2019-03-22 11:11] VITALS: RESP 16
[2019-03-22 11:13] VITALS: BP 116/78; PULSE 58
== END 2019-03-22 11:32 | disposition home or self-care (01) ==
LOC: OR 08:08
PROVIDERS: ATTEND Surgery
DX: K81.1 Chronic cholecystitis (principal); Z90.49 Acquired absence of other specified parts of digestive tract; Z87.891 Personal history of nicotine dependence; E66.01 Morbid (severe) obesity due to excess calories; Z68.41 Body mass index [BMI] 40.0-44.9, adult; Z88.8 Allergy status to other drugs, medicaments and biological substances
CPT/HCPCS: 88304; 47562; J2250; J0330; J1644; J1100; J2710; J0690; J2405; J2001; J3010; J1885; J2704; J1170

== ENCOUNTER 2019-04-21 21:45 | Emergency (ER) | payer BC, OTHER ==
[2019-04-21 22:19] VITALS: BP 142/93; TEMP 98.1
--- NOTE | 2019-04-21 22:42 | ED ---
General Adult HPI - General Chief complaint: Recheck/Abnormal Lab/Rx Stated complaint: Exposure, [facility] Source: patient Mode of arrival: ambulatory Limitations: no limitations - History of Present Illness Initial comments: Joao is a 28-year-old male presents the emergency department today for evaluation of exposure to blood. 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 - Related Data Home Medications Medication Instructions Recorded Confirmed No Known Home Medications 04/21/19 04/21/19 Allergies Allergy/AdvReac Type Severity Reaction Status Date / Time triamcinolone [From Kenalog] Allergy Rash/Hives Verified 04/21/19 22:31 Review of Systems ROS Statement: Those systems with pertinent positive or pertinent negative responses have been documented in the HPI. ROS Other: All systems not noted in ROS Statement are negative. Past Medical History Past Medical History: Asthma Additional Past Medical History / Comment(s): Hx asthma as a child, since resolved. Hx migraines. gallbladder disorder History of Any Multi-Drug Resistant Organisms: None Reported Past Surgical History: Appendectomy, Bowel Resection, Cholecystectomy, Hernia Repair Additional Past Surgical History / Comment(s): Surgery to remove benign mass from colon. COLONOSCOPY Past Anesthesia/Blood Transfusion Reactions: No Reported Reaction Past Psychological History: Depression Smoking Status: Former smoker Past Alcohol Use History: None Reported Past Drug Use History: None Reported - Past Family History Mother Family Medical History: No Reported History General Exam - General Exam Comments Initial Comments: Physical Exam GENERAL: Patient is well-developed and well-nourished. Patient is nontoxic and well-hydrated and is in no distress. HENT: Normocephalic, Atraumatic. EYES: PERRL, EOMI PULMONARY: Unlabored respirations CARDIOVASCULAR: There is a regular rate and rhythm without any murmurs gallops or rubs. ABDOMEN: Soft and nontender with normal bowel sounds. SKIN: No obvious injury : Deferred NEUROLOGIC: Patient is alert and oriented x3. Moving all extremities spontaneously Normal gait MUSCULOSKELETAL: Normal extremities with adequate strength and full range of motion. PSYCHIATRIC: Normal psychiatric evaluation Limitations: no limitations Course Vital Signs 04/21/19 22:16 Temperature 98.1 F Pulse Rate 110 H Respiratory 16 Rate Blood Pressure 142/93 O2 Sat by Pulse 96 Oximetry Medical Decision Making - Medical Decision Making The patient was seen and evaluated history was obtained from the patient Patient no acute distress with no injuries Labs were obtained from the patient as well as the source patient Patient declined HIV postexposure prophylaxis Patient medically cleared for return to work Disposition Clinical Impression: Exposure to blood Disposition: HOME SELF-CARE Condition: Stable Is patient prescribed a controlled substance at d/c from ED?: No Referrals: None,Stated [Primary Care Provider] - 1-2 days
[2019-04-21 22:55] VITALS: PULSE 87; RESP 18
== END 2019-04-21 22:55 | disposition home or self-care (01) ==
LOC: EC 21:45
DX: Z77.21 Contact with and (suspected) exposure to potentially hazardous body fluids (principal); Z87.891 Personal history of nicotine dependence; Z88.8 Allergy status to other drugs, medicaments and biological substances
CPT/HCPCS: 99282

== ENCOUNTER 2019-06-05 13:03 | Emergency (ER) | payer BC, OTHER ==
[2019-06-05 13:11] VITALS: RESP 16; TEMP 98
[2019-06-05] MEDS ORDERED: METOCLOPRAMIDE 5 MG/ML 2 ML VIAL IVP STA (13:45)
[2019-06-05 14:26] LABS: Basophils % (A) 0 %; Eosinophils # (A) 0.1 k/uL (0-0.7); Eosinophils % (A) 1 %; HCT 40.5 % (39.0-53.0); HGB 14.1 gm/dL (13.0-17.5); Lymphocytes # (A) 1.4 k/uL (1.0-4.8); Lymphocytes % (A) 16 %; MCH 29.6 pg (25.0-35.0); MCHC 34.8 g/dL (31.0-37.0); MCV 85.3 fL (80.0-100.0); Mean Platelet Volume 9.2; Monocytes # (A) 0.6 k/uL (0-1.0); Monocytes % (A) 7 %; Neutrophils # (A) 6.3 k/uL (1.3-7.7); Neutrophils % (A) 75 %; Platelet Count 195 k/uL (150-450); RBC 4.75 m/uL (4.30-5.90); RDW 15.3 % (11.5-15.5); WBC 8.4 k/uL (3.8-10.6)
--- NOTE | 2019-06-05 14:31 | XR ---
EXAMINATION TYPE: XR chest 2V DATE OF EXAM: 06/05/2019 COMPARISON: 02/23/2019 HISTORY: Chest pain TECHNIQUE: Frontal and lateral views of the chest are obtained. FINDINGS: Heart and mediastinum are normal. Lungs are clear. Diaphragm is normal. Bony thorax appear s normal. IMPRESSION: Normal chest. No change.
[2019-06-05 14:33] LABS: Appearance,Urine Clear (Clear); Bilirubin,Urine Negative (Negative); Blood,Urine Negative (Negative); Color,Urine Yellow; Glucose,Urine (UA) Negative (Negative); Ketones,Urine Trace (Negative); Leukocyte Esterase,Urine Negative (Negative); Nitrite,Urine Negative (Negative); PH, Urine 5.5 (5.0-8.0); Protein,Urine Trace (Negative); Specific Gravity,Urine 1.026 (1.001-1.035); Urobilinogen,Urine <2.0 mg/dL (<2.0)
[2019-06-05 14:35] LABS: D-Dimer 0.4 mg/L FEU (<0.60); INR 0.9 (<1.2); Partial Thromboplastin Time 21.9 sec (22.0-30.0)
[2019-06-05 15:07] LABS: ALT 28 U/L (21-72); AST 37 U/L (17-59); African American GFR (CKD) >90 (>60 ml/min/1.73 sqM); Albumin 4.3 g/dL (3.5-5.0); Alkaline Phosphatase 99 U/L (38-126); Anion Gap 11 mmol/L; Blood Urea Nitrogen 19 mg/dL (9-20); Calcium 9.3 mg/dL (8.4-10.2); Carbon Dioxide 21 mmol/L (22-30); Chloride 107 mmol/L (98-107); Glucose 86 mg/dL (74-99); Magnesium 1.8 mg/dL (1.6-2.3); Potassium 4.1 mmol/L (3.5-5.1); Sodium 139 mmol/L (137-145); Total Bilirubin 2.4 mg/dL (0.2-1.3); Total Protein 6.9 g/dL (6.3-8.2)
[2019-06-05] MEDS ORDERED: SODIUM CHLORIDE 0.9% 1,000 ML IV STA (15:29)
--- NOTE | 2019-06-05 15:35 | ED ---
General Adult HPI - General Chief complaint: Weakness Stated complaint: IHS-Dizzy Time Seen by Provider: 06/05/19 13:36 Source: EMS, RN notes reviewed, old records reviewed Mode of arrival: EMS Limitations: no limitations - History of Present Illness Initial comments: 28-year-old male patient, no pertinent past medical history presents to ED with chief complaint of dizziness, some mild chest pain. Patient fourth that he was doing a training exercise for the. Department out in the heat today. Patient reports that he began to feel dizziness, had some chest tightness. Patient also grossly had nausea with an episode of emesis. Patient was transported to Hospital via EMS. At time of evaluation patient has some very mild dizziness which has greatly improved. Patient denies other complaints. Systemic: Pt denies fatigue, fever/chills, rash. Pt denies weakness, night sweats, weight loss. Neuro: Pt denies headache, visual disturbances, syncope or pre-syncope. HEENT: Pt denies ocular discharge or irritation, otalgia, rhinorrhea, pharyngitis or notable lymphadenopathy. Cardiopulmonary: Pt denies SOB, heart palpitations, dyspnea on exertion. Abdominal/GI: Pt denies abdominal pain. : Pt denies dysuria, burning w/ urination, frequency/urgency. Denies new onset urinary or bowel incontinence. MSK: Pt denies myalgia, loss of strength or function in extremities. Neuro: Pt denies new onset weakness, paresthesias. - Related Data Home Medications Medication Instructions Recorded Confirmed No Known Home Medications 04/21/19 04/21/19 Allergies Allergy/AdvReac Type Severity Reaction Status Date / Time triamcinolone [From Kenalog] Allergy Rash/Hives Verified 04/21/19 22:31 Review of Systems ROS Statement: Those systems with pertinent positive or pertinent negative responses have been documented in the HPI. ROS Other: All systems not noted in ROS Statement are negative. Past Medical History Past Medical History: Asthma Additional Past Medical History / Comment(s): Hx asthma as a child, since resolved. Hx migraines. gallbladder disorder History of Any Multi-Drug Resistant Organisms: None Reported Past Surgical History: Appendectomy, Bowel Resection, Cholecystectomy, Hernia Repair Additional Past Surgical History / Comment(s): Surgery to remove benign mass from colon. COLONOSCOPY Past Anesthesia/Blood Transfusion Reactions: No Reported Reaction Past Psychological History: Depression Smoking Status: Former smoker Past Alcohol Use History: None Reported Past Drug Use History: None Reported - Past Family History Mother Family Medical History: No Reported History General Exam - General Exam Comments Initial Comments: Constitutional: NAD, AOX3, Pt has pleasant affect. HEENT: NC/AT, trachea midline, neck supple, no lymphadenopathy. Posterior pharynx non erythematous, without exudates. External ears appear normal, without discharge. Mucous membranes moist. Eyes PERRLA, EOM intact. There is no scleral icterus. No pallor noted. Cardiopulmonary: RRR, no murmurs, rubs or gallops, no JVD noted. Lungs CTAB in anterior and posterior edmonds. No peripheral edema. Abdominal exam: Abdomen soft and non-distended. Abdomen non-tender to palpation in all 4 quadrants. Bowel sounds active in LLQ. No hepatosplenomegaly. No ecchymosis Neuro: CN II-XII intact. No nuchal rigidity. No raccon eyes, no molina sign, no hemotympanum. No cervical spinal tenderness. NIH 0. Kernigs and brudzinskis negative. MSK: No posterior calf tenderness bilaterally, homans sign negative bilaterally. Posterior tibialis and radial pulse +2 bilaterally. Sensation intact in upper and lower extremities. Full active ROM in upper and lower extremities, 5/5 stregnth. Limitations: no limitations Course Vital Signs 06/05/19 06/05/19 13:06 14:03 Temperature 98.0 F Pulse Rate 78 69 Respiratory 16 16 Rate Blood Pressure 127/86 113/69 O2 Sat by Pulse 98 99 Oximetry Medical Decision Making - Medical Decision Making 28-year-old male patient, no pertinent past medical history presents to ED with chief complaint of dizziness, some mild chest pain. Patient fourth that he was doing a training exercise for the. Department out in the heat today. Patient reports that he began to feel dizziness, had some chest tightness. Patient also grossly had nausea with an episode of emesis. Patient was transported to Hospital via EMS. At time of evaluation patient has some very mild dizziness which has greatly improved. Patient denies other complaints. Pt VSS, afebrile. Physical exam did not display acute pathology. Laboratory investigations revealed nonpresent CBC, CMP, UA. Troponin negative. D-dimer negative. EKG not concerning for acute ischemia. Chest x-ray revealed no acute process. Patient feeling much improved after fluids. Patient will discharged, will follow up with primary care provider tomorrow. Return to ER if condition worsens. HEART score low risk. Case discussed with Dr. Mensah. Patient had a secondary complaint prior to discharge about a abrasion to his right lower extremity. Patient has an approximately 6 inch abrasion that he says was suffered earlier today. Patient reports that he did clean the wound. On examination abrasion is not open, did not require any closure. Patient will be administered to that vaccination. Will monitor for signs symptoms of infection. - Lab Data Result diagrams: 06/05/19 13:57 06/05/19 14:40 Lab Results 06/05/19 06/05/19 06/05/19 Range/Units 13:57 13:57 14:19 WBC 8.4 (3.8-10.6) k/uL RBC 4.75 (4.30-5.90) m/uL Hgb 14.1 (13.0-17.5) gm/dL Hct 40.5 (39.0-53.0) % MCV 85.3 (80.0-100.0) fL MCH 29.6 (25.0-35.0) pg MCHC 34.8 (31.0-37.0) g/dL RDW 15.3 (11.5-15.5) % Plt Count 195 (150-450) k/uL Neutrophils % 75 % Lymphocytes % 16 % Monocytes % 7 % Eosinophils % 1 % Basophils % 0 % Neutrophils # 6.3 (1.3-7.7) k/uL Lymphocytes # 1.4 (1.0-4.8) k/uL Monocytes # 0.6 (0-1.0) k/uL Eosinophils # 0.1 (0-0.7) k/uL Basophils # 0.0 (0-0.2) k/uL PT 10.0 (9.0-12.0) sec INR 0.9 (<1.2) APTT 21.9 L (22.0-30.0) sec D-Dimer 0.40 (<0.60) mg/L FEU Sodium (137-145) mmol/L Potassium (3.5-5.1) mmol/L Chloride (98-107) mmol/L Carbon Dioxide (22-30) mmol/L Anion Gap mmol/L BUN (9-20) mg/dL Creatinine (0.66-1.25) mg/dL Est GFR (CKD-EPI)AfAm (>60 ml/min/1.73 sqM) Est GFR (CKD-EPI)NonAf (>60 ml/min/1.73 sqM) Glucose (74-99) mg/dL Calcium (8.4-10.2) mg/dL Magnesium (1.6-2.3) mg/dL Total Bilirubin (0.2-1.3) mg/dL AST (17-59) U/L ALT (21-72) U/L Alkaline Phosphatase (38-126) U/L Troponin I (0.000-0.034) ng/mL Total Protein (6.3-8.2) g/dL Albumin (3.5-5.0) g/dL Urine Color Yellow Urine Appearance Clear (Clear) Urine pH 5.5 (5.0-8.0) Ur Specific [place] 1.026 (1.001-1.035) Urine Protein Trace H (Negative) Urine Glucose (UA) Negative (Negative) Urine Ketones Trace H (Negative) Urine Blood Negative (Negative) Urine Nitrite Negative (Negative) Urine Bilirubin Negative (Negative) Urine Urobilinogen <2.0 (<2.0) mg/dL Ur Leukocyte Esterase Negative (Negative) 06/05/19 06/05/19 Range/Units 14:40 14:40 WBC (3.8-10.6) k/uL RBC (4.30-5.90) m/uL Hgb (13.0-17.5) gm/dL Hct (39.0-53.0) % MCV (80.0-100.0) fL MCH (25.0-35.0) pg MCHC (31.0-37.0) g/dL RDW (11.5-15.5) % Plt Count (150-450) k/uL Neutrophils % % Lymphocytes % % Monocytes % % Eosinophils % % Basophils % % Neutrophils # (1.3-7.7) k/uL Lymphocytes # (1.0-4.8) k/uL Monocytes # (0-1.0) k/uL Eosinophils # (0-0.7) k/uL Basophils # (0-0.2) k/uL PT (9.0-12.0) sec INR (<1.2) APTT (22.0-30.0) sec D-Dimer (<0.60) mg/L FEU Sodium 139 (137-145) mmol/L Potassium 4.1 (3.5-5.1) mmol/L Chloride 107 (98-107) mmol/L Carbon Dioxide 21 L (22-30) mmol/L Anion Gap 11 mmol/L BUN 19 (9-20) mg/dL Creatinine 1.06 (0.66-1.25) mg/dL Est GFR (CKD-EPI)AfAm >90 (>60 ml/min/1.73 sqM) Est GFR (CKD-EPI)NonAf >90 (>60 ml/min/1.73 sqM) Glucose 86 (74-99) mg/dL Calcium 9.3 (8.4-10.2) mg/dL Magnesium 1.8 (1.6-2.3) mg/dL Total Bilirubin 2.4 H (0.2-1.3) mg/dL AST 37 (17-59) U/L ALT 28 (21-72) U/L Alkaline Phosphatase 99 (38-126) U/L Troponin I <0.012 (0.000-0.034) ng/mL Total Protein 6.9 (6.3-8.2) g/dL Albumin 4.3 (3.5-5.0) g/dL Urine Color Urine Appearance (Clear) Urine pH (5.0-8.0) Ur Specific [place] (1.001-1.035) Urine Protein (Negative) Urine Glucose (UA) (Negative) Urine Ketones (Negative) Urine Blood (Negative) Urine Nitrite (Negative) Urine Bilirubin (Negative) Urine Urobilinogen (<2.0) mg/dL Ur Leukocyte Esterase (Negative) - EKG Data -: EKG Interpreted by Me (and Dr. Mensah) EKG Comments: Ventricular rate 72, NH interval 180, QRS 96, QT/QTC 36 is 422. Normal sinus rhythm, cannot rule out inferior infarct, age undetermined. no concern for acute ischemia at this time. Disposition Clinical Impression: Dehydration, Chest pain Disposition: HOME SELF-CARE Condition: Stable Instructions (If sedation given, give patient instructions): Dehydration (ED) Additional Instructions: Patient to adhere to previously discussed treatment plan and will take medication(s) as directed. Patient to follow up with PCP in 1-2 days. Patient to return to ED if symptoms do not improve. Follow-up with primary care provider tomorrow, return to ER if condition worsens. Is patient prescribed a controlled substance at d/c from ED?: No Referrals: None,Stated [Primary Care Provider] - 1-2 days [facility] [NON-[facility]] - 1-2 days
[2019-06-05] MEDS ORDERED: KETOROLAC 30 MG/ML 1 ML VIAL IVP STA (15:38)
[2019-06-05] MEDS ORDERED: DIPH,PERTUS(ACELL)TETVAC-LF 0.5 ML VIAL IM ONE (16:32)
[2019-06-05 17:10] VITALS: BP 135/82; PULSE 76
== END 2019-06-05 17:00 | disposition home or self-care (01) ==
LOC: EC 13:03
DX: E86.0 Dehydration (principal); R07.89 Other chest pain; S80.811A Abrasion, right lower leg, initial encounter; R53.1 Weakness; Z87.891 Personal history of nicotine dependence; Z23 Encounter for immunization; Z87.09 Personal history of other diseases of the respiratory system; Z88.8 Allergy status to other drugs, medicaments and biological substances
CPT/HCPCS: 36415; 93005; 85379; 80053; 83735; 84484; 85025; 85610; 85730; 81003; 71046; 90715; 99285; 96374; 96375; 90471; J2765; J1885

== ENCOUNTER 2019-07-28 07:26 | Day surgery (SDC) | payer BC ==
[2019-07-21 13:52] VITALS: BMI 47.5
[~2019-07-28 07:26] MED LIST changes: +SCOPOLAMINE 1.5MG/72HR PATCH TRANSDERM ONE; -fentaNYL (PF) 50 MCG/ML 2 ML AMP IV PRN
--- NOTE | 2019-07-28 08:56 | P.GSHP ---
History of Present Illness H&P Date: 07/28/19 Chief Complaint: Recurrent incisional hernia This is a 28-year-old male who developed a recurrent incisional hernia. Patient has anus hernia and the umbilicus. Past Medical History Past Medical History: Asthma Additional Past Medical History / Comment(s): Hx asthma as a child, since resolved. Hx migraines. History of Any Multi-Drug Resistant Organisms: None Reported Past Surgical History: Appendectomy, Bowel Resection, Cholecystectomy, Hernia Repair Additional Past Surgical History / Comment(s): surgery to remove benign tumors f rom colon, umbilical hernia repair, Past Anesthesia/Blood Transfusion Reactions: Motion Sickness, Postoperative Nausea & Vomiting (PONV) Smoking Status: Former smoker - Past Family History Mother Family Medical History: No Reported History Medications and Allergies Home Medications Medication Instructions Recorded Confirmed Type No Known Home Medications 04/21/19 07/28/19 History Allergies Allergy/AdvReac Type Severity Reaction Status Date / Time triamcinolone [From Kenalog] Allergy Rash/Hives Verified 07/28/19 07:37 Surgical - Exam Vital Signs Temp Pulse Resp BP Pulse Ox 97.8 F 71 16 122/76 96 07/28/19 07:39 07/28/19 07:39 07/28/19 07:39 07/28/19 07:39 07/28/19 07:39 - General well developed, well nourished, no distress - Eyes PERRL - ENT normal pinna - Neck no masses - Respiratory normal expansion - Cardiovascular Rhythm: regular - Abdomen Abdomen: soft, non tender Hernia: incisional (10 cm incisional hernia located in the periumbilical area) Assessment and Plan Assessment: Recurrent incisional hernia. We'll perform open repair.
[2019-07-28] MEDS ORDERED: LIDOCAINE 1% INJ 10MG/ML (20 ML MDV) ONE (10:13)
[2019-07-28] MEDS ORDERED: VECURONIUM 10 MG VIAL IV ONE (10:13)
[2019-07-28] MEDS ORDERED: SUCCINYLCHOLINE CHLORIDE VIAL 200 MG/10 ML VIAL IV ONE (10:13)
[2019-07-28] MEDS ORDERED: HYDROmorphone (PF) 1 MG/ML ONE (10:13)
[2019-07-28] MEDS ORDERED: GLYCOPYRROLATE 0.2 MG/ML 2 ML VIAL ONE (10:13)
[2019-07-28] MEDS ORDERED: NEOSTIGMINE 1 MG/ML 10 ML VIAL ONE (10:13)
[2019-07-28] MEDS ORDERED: KETOROLAC 30 MG/ML 1 ML VIAL ONE (10:13)
[2019-07-28] MEDS ORDERED: MIDAZOLAM 2 MG/2 ML VIAL ONE (10:13)
[2019-07-28] MEDS ORDERED: SUCCINYLCHOLINE CHLORIDE 100 MG/5 ML SYR IV ONE (10:13)
[2019-07-28] MEDS ORDERED: fentaNYL (PF) 50 MCG/ML 2 ML AMP ONE (10:13)
[2019-07-28] MEDS ORDERED: BUPIVACAIN-EPI 0.25%-1:200,000 30 ML VIAL SQ ONE (10:30)
[2019-07-28] MEDS ORDERED: LACTATED RINGERS 1,000 ML IV ONE (11:01)
[2019-07-28] MEDS: HYDROmorphone 0.5 MG/0.5 ML SYRINGE IVP PRN ×4 (11:28→11:57)
[2019-07-28 11:35] VITALS: TEMP 97.7
--- NOTE | 2019-07-28 11:35 | P.OP ---
Date of Procedure: 07/28/19 Preoperative Diagnosis: Recurrent incisional hernia Postoperative Diagnosis: Recurrent incisional hernia Procedure(s) Performed: (Repair of recurrent incisional hernia with mesh Anesthesia: BOBBY Surgeon: Benji Jimenez Estimated Blood Loss (ml): 50 Pathology: none sent Condition: stable Disposition: PACU Description of Procedure: The patient's placed on the operating table in the supine position. He received general anesthesia. His abdomen was prepped and draped usual fashion. The patient had a large incisional hernia located at the periumbilical area. The skin was incised. Then using blunt and sharp dissection with cautery the subcutaneous tissues were divided. The hernia sac was dissected free. The hernia defect was partially 10 cm diameter. The hernia defect was then inverted back the pleural cavity. And then the fascia was repaired with #1 strata fix suture. After the fascia was closed. The fascia was further exposed by dividing subcutaneous tissues off the fascia. Next a piece of Prolene mesh was cut to appropriate size and then secured the superior strap tacker. The JULIÁN drains. Top the repair and brought through separate stab incision and then the Olivia's fascia close 0 Vicryl suture. Skin was closed raheem. Patient tolerated the procedure the procedure well will was sent to recovery room in stable condition.
[2019-07-28 11:49] VITALS: RESP 18
[2019-07-28 12:41] VITALS: BP 117/72; PULSE 69
[2019-07-28] MEDS ORDERED: HYDROcodone/APAP 5-325MG 1 EACH TAB PO ONE (12:47)
== END 2019-07-28 14:12 | disposition home or self-care (01) ==
LOC: OR 07:26
PROVIDERS: ATTEND Surgery
DX: K43.2 Incisional hernia without obstruction or gangrene (principal); J45.909 Unspecified asthma, uncomplicated; G43.909 Migraine, unspecified, not intractable, without status migrainosus; Z87.891 Personal history of nicotine dependence; Z87.09 Personal history of other diseases of the respiratory system; Z90.49 Acquired absence of other specified parts of digestive tract; Z98.890 Other specified postprocedural states; Z88.8 Allergy status to other drugs, medicaments and biological substances
CPT/HCPCS: 49565; 49568; C1781; J2250; J0330 ×2; J1644; J1100; J2710; J0690; J2405; J2001; J3010; J1885; J1170 ×2

== ENCOUNTER 2019-08-01 18:26 | Emergency (ER) | payer BC, OTHER ==
[2019-08-01 18:33] VITALS: BP 137/86; PULSE 88; RESP 18; TEMP 98.2
--- NOTE | 2019-08-01 18:55 | ED ---
Abdominal Pain HPI - General Chief Complaint: Abdominal Pain Stated Complaint: Post op Complications Time Seen by Provider: 08/01/19 18:34 Source: patient Mode of arrival: ambulatory Limitations: no limitations - History of Present Illness Initial Comments: Patient is a 29-year-old male day 4 status post umbilical hernia repair is presenting to the emergency department with a chief complaint of a draining tube falling out. Patient reports he removed some of the sutures of the draining to because it was uncomfortable. Patient reports after remove the sutures, the drain tube accidentally came out. Patient reports yesterday there was drainage of approximately 100 ml. Patient reports today he drained approximately 50 ml prior to removal. Patient reports it was serosanguineous discharge. Patient denies any abdominal pain. Patient denies any fevers night sweats or chills. Patient denies any nausea or vomiting. - Related Data Previous Rx's Medication Instructions Recorded Docusate [Colace] 100 mg PO BID #20 capsule 07/28/19 HYDROcodone/APAP 5-325MG [[place] 1 tab PO Q6HR PRN #10 tab 07/28/19 5-325] Allergies Allergy/AdvReac Type Severity Reaction Status Date / Time triamcinolone [From Kenalog] Allergy Rash/Hives Verified 08/01/19 18:28 Review of Systems ROS Statement: Those systems with pertinent positive or pertinent negative responses have been documented in the HPI. ROS Other: All systems not noted in ROS Statement are negative. Past Medical History Past Medical History: Asthma Additional Past Medical History / Comment(s): Hx asthma as a child, since resolved. Hx migraines. History of Any Multi-Drug Resistant Organisms: None Reported Past Surgical History: Appendectomy, Bowel Resection, Cholecystectomy, Hernia Repair Additional Past Surgical History / Comment(s): surgery to remove benign tumors from colon, umbilical hernia repair, Past Anesthesia/Blood Transfusion Reactions: Motion Sickness, Postoperative Nausea & Vomiting (PONV) Past Psychological History: No Psychological Hx Reported Smoking Status: Never smoker Past Alcohol Use History: None Reported Past Drug Use History: None Reported - Past Family History Mother Family Medical History: No Reported History General Exam Limitations: no limitations General appearance: alert, in no apparent distress Head exam: Present: atraumatic, normocephalic, normal inspection Eye exam: Present: normal appearance, PERRL, EOMI Pupils: Present: normal accommodation ENT exam: Present: normal exam, normal oropharynx, mucous membranes moist, TM's normal bilaterally, normal external ear exam Neck exam: Present: normal inspection, full ROM Respiratory exam: Present: normal lung sounds bilaterally, respiratory distress, rhonchi Cardiovascular Exam: Present: regular rate, normal rhythm, normal heart sounds GI/Abdominal exam: Present: soft, normal bowel sounds, other (Umbilical surgical repair. Closed draining tube ostomy.). Absent: distended, tenderness, guarding Extremities exam: Present: normal inspection, full ROM Back exam: Present: normal inspection, full ROM Neurological exam: Present: alert, oriented X3 Psychiatric exam: Present: normal affect, normal mood Skin exam: Present: warm, intact, normal color Course Vital Signs 08/01/19 18:28 Temperature 98.2 F Pulse Rate 88 Respiratory 18 Rate Blood Pressure 137/86 O2 Sat by Pulse 97 Oximetry Medical Decision Making - Medical Decision Making Patient is a 29-year-old male day 4 status post umbilical hernia repairs presenting to emergency Department with a chief complaint of a draining tube falling out. Patient reports he was initially draining proximally 200 mL, yesterday he drained approximately 100 mL an today he drained about 50 mL prior to the tube falling out at 1400. Patient reports the sutures were irritating his skin and he cut them off. Patient reports immediately after the tube fell out as he was attempting to ambulate. Patient reports mild abdominal tenderness only at the incision site. No nausea vomiting. No fevers or chills. Eating without issues. Patient's vitals are stable. Patient does not have any shortness of breath. Patient advised to contact tomorrow regarding the draining tube falling out. Strict return parameters were thoroughly discussed patient was understanding and agreeable. Case discussed with Dr. Mensah. Disposition Clinical Impression: Broken Kayden-Ricks drain Disposition: HOME SELF-CARE Condition: Stable Instructions (If sedation given, give patient instructions): How to Care for Your Chest or Abdominal Catheter (ED) Additional Instructions: Please contact Dr. Waller in the morning. Please return to emergency department is symptoms worsen. Is patient prescribed a controlled substance at d/c from ED?: No Referrals: Scott Rojo MD [Primary Care Provider] - 1-2 days Time of Disposition: 19:12
== END 2019-08-01 19:17 | disposition home or self-care (01) ==
LOC: EC 18:26
DX: Z46.59 Encounter for fitting and adjustment of other gastrointestinal appliance and device (principal); R06.03 Acute respiratory distress; Z88.8 Allergy status to other drugs, medicaments and biological substances; Z98.890 Other specified postprocedural states
CPT/HCPCS: 99283

== ENCOUNTER → 2019-08-04 | Outpatient (CLI) | payer BC, OTHER ==
[2019-08-04 12:44] LABS: Basophils % (A) 1 %; Eosinophils # (A) 0.3 k/uL (0-0.7); Eosinophils % (A) 3 %; HCT 44.3 % (39.0-53.0); HGB 15.4 gm/dL (13.0-17.5); Lymphocytes # (A) 1.7 k/uL (1.0-4.8); Lymphocytes % (A) 19 %; MCH 30.2 pg (25.0-35.0); MCHC 34.8 g/dL (31.0-37.0); MCV 86.9 fL (80.0-100.0); Mean Platelet Volume 7.4; Monocytes # (A) 0.5 k/uL (0-1.0); Monocytes % (A) 5 %; Neutrophils # (A) 6.3 k/uL (1.3-7.7); Neutrophils % (A) 71 %; Platelet Count 250 k/uL (150-450); RDW 13.1 % (11.5-15.5); WBC 8.9 k/uL (3.8-10.6)
[2019-08-04 18:58] LABS: African American GFR (CKD) 106.1 (60.0-200.0); Albumin 4.4 g/dL (3.80-4.90); Albumin/Globulin Ratio 2.44 (1.60-3.17); Anion Gap 7.1 mmol/L (4.00-12.00); BUN/Creat Ratio 14.55 Ratio (12.00-20.00); Calcium 9.2 mg/dL (8.7-10.3); Carbon Dioxide 26.9 mmol/L (21.6-31.8); Chol/HDL Ratio 5.33; Globulin 1.8 g/dL (1.6-3.3); LDL Cholesterol,Calculated 94.4 mg/dL (0.0-131.0); Potassium 4.6 mmol/L (3.5-5.5); Total Bilirubin 1.6 mg/dL (0.3-1.2); Total Protein 6.2 g/dL (6.2-8.2); VLDL Calculation 35.6 mg/dL (5.00-40.00)
== END | disposition home or self-care (01) ==
LOC: LABWHC1 11:35
PROVIDERS: ATTEND Family Medicine
DX: Z00.00 Encounter for general adult medical examination without abnormal findings (principal); Z79.899 Other long term (current) drug therapy
CPT/HCPCS: 36415; 80053; 80061; 82652; 83036; 84443; 85025

== ENCOUNTER 2020-01-03 07:24 | Day surgery (SDC) | payer BC, OTHER ==
[2019-12-30 10:42] VITALS: BMI 43.4
[~2020-01-03 07:24] MED LIST changes: -DEXAMETHASONE SOD PHOSPHATE 10 MG/ML 1 ML VIAL IV ONE; -HEPARIN SODIUM,PORCINE 5,000 UNIT/ML 1 ML VIAL SQ ONE; -ONDANSETRON 4 MG/2 ML VIAL IVP ONE; -SCOPOLAMINE 1.5MG/72HR PATCH TRANSDERM ONE; -ceFAZolin 3 GM in SODIUM CHLORIDE 0.9% 100 ML IVPB ONE
[2020-01-03 07:45] VITALS: RESP 16; TEMP 97.6
[2020-01-03] MEDS ORDERED: PROPOFOL 10 MG/ML 20 ML VIAL IV ONE (08:54)
--- NOTE | 2020-01-03 09:13 | P.GSHP ---
History of Present Illness H&P Date: 01/03/20 Chief Complaint: History of colon cancer This a 29-year-old male who presents today for colonoscopy. Patient previous history of appendicitis with a cancer the appendix. Patient appears right colectomy. He presents today for colonoscopy. Past Medical History Past Medical History: Asthma Additional Past Medical History / Comment(s): Hx asthma as a child, since resolved. Hx migraines. History of Any Multi-Drug Resistant Organisms: None Reported Past Surgical History: Appendectomy, Bowel Resection, Cholecystectomy, Hernia Repair Additional Past Surgical History / Comment(s): surgery to remove benign tumors from colon, umbilical hernia repair x2 Past Anesthesia/Blood Transfusion Reactions: Motion Sickness Smoking Status: Former smoker - Past Family History Mother Family Medical History: No Reported History Medications and Allergies Home Medications Medication Instructions Recorded Confirmed Type Lisdexamfetamine Dimesylate 50 mg PO QAM 12/30/19 12/30/19 History [Vyvanse] Allergies Allergy/AdvReac Type Severity Reaction Status Date / Time triamcinolone [From Kenalog] Allergy Rash/Hives Verified 01/03/20 07:45 Surgical - Exam Vital Signs Temp Pulse Resp BP Pulse Ox 97.6 F 80 16 144/83 99 01/03/20 07:44 01/03/20 07:44 01/03/20 07:44 01/03/20 07:44 01/03/20 07:44 - General well developed, well nourished, no distress - Eyes PERRL - ENT normal pinna - Neck no masses - Respiratory normal expansion - Cardiovascular Rhythm: regular - Abdomen Abdomen: soft, non tender Assessment and Plan Assessment: History of colon Cancer. We'll perform colonoscopy.
--- NOTE | 2020-01-03 09:28 | P.OP ---
Date of Procedure: 01/03/20 Preoperative Diagnosis: History of colon cancer Postoperative Diagnosis: Normal colonoscopy status post right colectomy Procedure(s) Performed: Colonoscopy Anesthesia: MAC Surgeon: Benji Jimenez Pathology: none sent Condition: stable Disposition: PACU Operative Findings: PROCEDURE: The patient was placed on the endoscopy table in the lateral position. Digital rectal examination was performed which revealed no abnormalities. The prostate was symmetrical without nodules. Flexible colonoscope was then placed in the patient's anus and passed throughout the entire colon. The patient had a previous right I. The ileocolonic anastomosis was visualized. There is no evidence of any recurrent tumor. The scope was withdrawn. The remainder of the transverse, descending and sigmoid colon appeared normal. The rectum was normal. Scope was withdrawn for patient.
[2020-01-03 09:42] VITALS: BP 101/57; PULSE 59
== END 2020-01-03 10:05 | disposition home or self-care (01) ==
LOC: ORWHC2ENDO 07:24
PROVIDERS: ATTEND Surgery
DX: Z12.11 Encounter for screening for malignant neoplasm of colon (principal); Z98.0 Intestinal bypass and anastomosis status; Z85.038 Personal history of other malignant neoplasm of large intestine; Z87.19 Personal history of other diseases of the digestive system; Z90.49 Acquired absence of other specified parts of digestive tract; Z87.09 Personal history of other diseases of the respiratory system; Z86.69 Personal history of other diseases of the nervous system and sense organs; Z98.890 Other specified postprocedural states; Z87.898 Personal history of other specified conditions; Z87.891 Personal history of nicotine dependence; Z79.899 Other long term (current) drug therapy; Z88.8 Allergy status to other drugs, medicaments and biological substances
CPT/HCPCS: J2704; G0105

== ENCOUNTER → 2020-08-25 | Outpatient (CLI) | payer BC ==
[2020-08-25 12:44] LABS: HCT 45.6 % (39.0-53.0); HGB 14.8 gm/dL (13.0-17.5); MCHC 32.5 g/dL (31.0-37.0); MCV 89.2 fL (80.0-100.0); Mean Platelet Volume 8.4; Platelet Count 218 k/uL (150-450); RBC 5.11 m/uL (4.30-5.90); RDW 13.1 % (11.5-15.5); WBC 6.3 k/uL (3.8-10.6)
[2020-08-25 22:38] LABS: African American GFR (CKD) 118.2 (60.0-200.0); Albumin 4.4 g/dL (3.80-4.90); Calcium 9.2 mg/dL (8.7-10.3); Chol/HDL Ratio 5.06; Globulin 2.2 g/dL (1.6-3.3); LDL Cholesterol,Calculated 114.6 mg/dL (0.0-131.0); Total Bilirubin 1.5 mg/dL (0.2-1.2); Total Protein 6.6 g/dL (6.2-8.2); VLDL Calculation 19.4 mg/dL (5.00-40.00)
[2020-08-25 23:42] LABS: Hemoglobin A1C 5.1 % (4.0-6.0)
== END | disposition home or self-care (01) ==
LOC: LABWHC1 10:47
PROVIDERS: ATTEND Family Medicine
DX: I10 Essential (primary) hypertension (principal); B89 Unspecified parasitic disease
CPT/HCPCS: 36415; 80053; 80061; 83036; 84443; 84681; 85027

== ENCOUNTER 2020-12-14 10:00 | Day surgery (SDC) | payer BC ==
[2020-12-12 12:39] VITALS: BMI 44.7
[~2020-12-14 10:00] MED LIST changes: +LIDOCAINE 1% (10MG/ML) FOR IV START INTRADERMA PRN; -LIDOCAINE 1% 20 ML VIAL (10MG/ML) FOR IV START INTRADERMA PRN; -MIDAZOLAM 2 MG/2 ML VIAL IV PRN
[2020-12-14 11:16] VITALS: TEMP 97.7
[2020-12-14] MEDS ORDERED: PROPOFOL 10 MG/ML 20 ML VIAL IV ONE (11:30)
--- NOTE | 2020-12-14 11:36 | P.GSHP ---
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 Patient presents today for colonoscopy. Past Medical History Past Medical History: Asthma Additional Past Medical History / Comment(s): Hx asthma as a child, since resolved. Hx migraines-haven't had in sometime History of Any Multi-Drug Resistant Organisms: None Reported Past Surgical History: Appendectomy, Bowel Resection, Cholecystectomy, Hernia Repair Additional Past Surgical History / Comment(s): surgery to remove benign tumors from colon, umbilical hernia repair x2 Past Anesthesia/Blood Transfusion Reactions: Motion Sickness Smoking Status: Former smoker - Past Family History Mother Family Medical History: No Reported History Medications and Allergies Home Medications Medication Instructions Recorded Confirmed Type Dextroamphetamine/Amphetamine 20 mg PO DAILY 12/12/20 12/14/20 History [Adderall] Allergies Allergy/AdvReac Type Severity Reaction Status Date / Time triamcinolone [From Kenalog] Allergy Rash/Hives Verified 12/14/20 11:07 Surgical - Exam Vital Signs Temp Pulse Resp BP Pulse Ox 97.7 F 61 16 129/88 98 12/14/20 11:00 12/14/20 11:00 12/14/20 11:00 12/14/20 11:00 12/14/20 11:00 - General well developed, well nourished, no distress - Eyes PERRL - ENT normal pinna - Neck no masses - Respiratory normal expansion Assessment and Plan Assessment: History of appendiceal cancer. Patient will undergo colonoscopy.
--- NOTE | 2020-12-14 11:48 | P.OP ---
Date of Procedure: 12/14/20 Preoperative Diagnosis: History of appendiceal cancer Postoperative Diagnosis: Normal colonoscopy status post right colectomy Procedure(s) Performed: Colonoscopy Anesthesia: MAC Surgeon: Benji Jimenez Pathology: none sent Condition: stable Disposition: PACU Operative Findings: The patient's placed on the endoscopy table in the lateral position. He received IV sedation. Digital rectal exam was performed which revealed no abnormalities. Flexible colonoscope was then placed patient anus passed throu ghout the entire colon. The ileal colonic anastomosis visualized. The transverse colon descending colon and sigmoid colon appeared normal. Scope was brought back the rectum this appeared normal. Scope was withdrawn for patient.
[2020-12-14 12:06] VITALS: BP 125/69; PULSE 65; RESP 18
== END 2020-12-14 12:35 | disposition home or self-care (01) ==
LOC: ORWHC2ENDO 10:00
PROVIDERS: ATTEND Surgery
DX: Z12.11 Encounter for screening for malignant neoplasm of colon (principal); K08.89 Other specified disorders of teeth and supporting structures; E66.9 Obesity, unspecified; Z98.0 Intestinal bypass and anastomosis status; Z85.038 Personal history of other malignant neoplasm of large intestine; Z87.09 Personal history of other diseases of the respiratory system; Z86.69 Personal history of other diseases of the nervous system and sense organs; Z90.49 Acquired absence of other specified parts of digestive tract; Z98.890 Other specified postprocedural states; Z87.19 Personal history of other diseases of the digestive system; Z87.898 Personal history of other specified conditions; Z87.891 Personal history of nicotine dependence; Z79.899 Other long term (current) drug therapy; Z88.8 Allergy status to other drugs, medicaments and biological substances; Z68.41 Body mass index [BMI] 40.0-44.9, adult
CPT/HCPCS: G0105; J2704; 45378

== ENCOUNTER → 2021-06-06 | Outpatient (CLI) | payer OTHER ==
--- NOTE | 2021-06-06 14:19 | XR ---
Right foot and right ankle HISTORY: Trauma and pain, S93.401A S93.601A 3 views of the right ankle, 3 views of the right foot submitted Soft tissue swelling is present. There is an enthesophyte at the insertion of the Achilles tendon. Gunner ne mineralization, joint spaces and alignment are maintained. IMPRESSION: No acute fracture or dislocation of the right foot or ankle.
== END | disposition home or self-care (01) ==
LOC: RADXRMAIN 13:57
PROVIDERS: ATTEND Emergency Medicine
DX: S99.911A Unspecified injury of right ankle, initial encounter (principal); S99.921A Unspecified injury of right foot, initial encounter; M25.571 Pain in right ankle and joints of right foot

== ENCOUNTER → 2021-06-21 | Outpatient (CLI) | payer OTHER ==
--- NOTE | 2021-06-21 12:31 | XR ---
EXAMINATION TYPE: XR foot complete RT DATE OF EXAM: 06/21/2021 COMPARISON: NONE HISTORY: Pain TECHNIQUE: Three views are submitted. FINDINGS: The osseous structures are intact. There is no acute fracture or dislocation. Joint spaces preserv ed. No erosive changes. Calcaneal spur noted. IMPRESSION: 1. No acute fracture or dislocation. If symptoms persist, follow-up exam in 7 to 10 days could be ob tained.
== END | disposition home or self-care (01) ==
LOC: RADXRMAIN 11:58
PROVIDERS: ATTEND Emergency Medicine
DX: M79.671 Pain in right foot (principal)

== ENCOUNTER 2021-08-02 12:21 | Emergency (ER) | payer BC ==
[2021-08-02 12:49] VITALS: RESP 18
[2021-08-02] MEDS ORDERED: ONDANSETRON ODT 4 MG TAB PO STA (13:02)
[2021-08-02] MEDS ORDERED: ONDANSETRON 4 MG/2 ML VIAL IVP STA (13:27)
[2021-08-02] MEDS ORDERED: SODIUM CHLORIDE 0.9% 2,000 ML IV ONE (13:27)
--- NOTE | 2021-08-02 13:30 | ED ---
URI HPI - General Chief Complaint: Upper Respiratory Infection Stated Complaint: Loss of taste/smell/Headache Time Seen by Provider: 08/02/21 12:24 Source: patient, RN notes reviewed Mode of arrival: ambulatory Limitations: no limitations - History of Present Illness Initial Comments: 31-year-old male presents emergency Department with chief complaint of cough congestion loss of taste. Patient states that he's had a headache, body aches low-grade fevers. Patient states he does not feel well he states his was recently positive for COVID-19. Patient denies any significant shortness of breath but states that he does feel little more labored breathing. No chest pain or neck stiffness neck pain patient had nausea, decreased appetite. - Related Data Home Medications Medication Instructions Recorded Confirmed Dextroamphetamine/Amphetamine 30 mg PO QAM 08/02/21 08/02/21 [Adderall Xr] Allergies Allergy/AdvReac Type Severity Reaction Status Date / Time triamcinolone [From Kenalog] Allergy Rash/Hives Verified 08/02/21 13:11 Review of Systems ROS Statement: Those systems with pertinent positive or pertinent negative responses have been documented in the HPI. ROS Other: All systems not noted in ROS Statement are negative. Past Medical History Past Medical History: Asthma Additional Past Medical History / Comment(s): Hx asthma as a child, since resolved. Hx migraines-haven't had in sometime History of Any Multi-Drug Resistant Organisms: None Reported Past Surgical History: Appendectomy, Bowel Resection, Cholecystectomy, Hernia Repair Additional Past Surgical History / Comment(s): surgery to remove benign tumors from colon, umbilical hernia repair x2 Past Anesthesia/Blood Transfusion Reactions: Motion Sickness Past Psychological History: ADD/ADHD, Depression Smoking Status: Former smoker - Past Family History Mother Family Medical History: No Reported History General Exam Limitations: no limitations General appearance: alert, in no apparent distress Head exam: Present: atraumatic, normocephalic, normal inspection Eye exam: Present: normal appearance, PERRL, EOMI. Absent: scleral icterus, conjunctival injection, periorbital swelling ENT exam: Present: normal exam, mucous membranes moist Neck exam: Present: normal inspection, full ROM. Absent: tenderness, meningismus, lymphadenopathy Respiratory exam: Present: normal lung sounds bilaterally. Absent: respiratory distress, wheezes, rales, rhonchi, stridor Cardiovascular Exam: Present: regular rate, normal rhythm, normal heart sounds. Absent: systolic murmur, diastolic murmur, rubs, gallop, clicks GI/Abdominal exam: Present: soft, normal bowel sounds. Absent: distended, tenderness, guarding, rebound, rigid Course Vital Signs 08/02/21 08/02/21 12:22 12:47 Temperature 98.3 F Pulse Rate 77 Respiratory 20 18 Rate Blood Pressure 148/95 O2 Sat by Pulse 97 Oximetry Medical Decision Making - Medical Decision Making Patient is father for COVID-19. Patient will receive monoclonal antibiotics will be discharged in stable condition vitals are stable. Return parameters were discussed. - Lab Data Lab Results 08/02/21 Range/Units 12:33 Coronavirus (PCR) Detected A (Not Detectd) Disposition Clinical Impression: COVID-19 Disposition: HOME SELF-CARE Condition: Stable Instructions (If sedation given, give patient instructions): Coronavirus Disease 2019 (COVID-19) Additional Instructions: Please return to the Emergency Department if symptoms worsen or any other concerns. Is patient prescribed a controlled substance at d/c from ED?: No Referrals: Scott Rojo MD [Primary Care Provider] - 1-2 days Time of Disposition: 13:30
[2021-08-02] MEDS ORDERED: SODIUM CHLORIDE 0.9% 50 ML IVPB ONE (13:45)
[2021-08-02] MEDS ORDERED: CASIRIVIMAB/IMDEVIMAB (EUA) 1,200 MG in SODIUM CHLORIDE 0.9% 100 ML IVPB ONE (14:00)
[2021-08-02] MEDS ORDERED: KETOROLAC 15 MG/ML 1 ML VIAL IVP STA (14:06)
[2021-08-02] MEDS ORDERED: METOCLOPRAMIDE 5 MG/ML 2 ML VIAL IVP STA (14:06)
[2021-08-02] MEDS ORDERED: diphenhydrAMINE 50 MG/ML 1 ML VIAL IVP STA (14:06)
[2021-08-02 16:20] VITALS: BP 125/77; PULSE 78; TEMP 98.7
== END 2021-08-02 16:15 | disposition home or self-care (01) ==
LOC: EC 12:21
DX: U07.1 COVID-19 (principal); J45.909 Unspecified asthma, uncomplicated; F90.9 Attention-deficit hyperactivity disorder, unspecified type; F32.9 Major depressive disorder, single episode, unspecified; Z90.49 Acquired absence of other specified parts of digestive tract; Z87.891 Personal history of nicotine dependence
CPT/HCPCS: 99284; 96365; 96375 ×4; 96361 ×2; 87635; J1200; J2765; J2405; J1885; Q0243

== ENCOUNTER → 2022-08-20 | Outpatient (CLI) | payer OTHER ==
[2022-08-21 01:38] LABS: Basophils # (A) 0.03 X 10*3/uL (0.00-0.10); Basophils % (A) 0.4 %; Eosinophils # (A) 0.14 X 10*3/uL (0.04-0.35); Eosinophils % (A) 1.7 %; HCT 46.1 % (39.6-50.0); HGB 14.7 g/dL (13.0-17.0); Immature Grans, Automated 0.4 %; Lymphocytes # (A) 1.77 X 10*3/uL (0.90-5.00); Lymphocytes % (A) 21.6 %; MCH 29.1 pg (27.0-32.0); MCHC 31.9 g/dL (32.0-37.0); MCV 91.3 fL (80.0-97.0); Monocytes # (A) 0.66 X 10*3/uL (0.20-1.00); Monocytes % (A) 8.1 %; NRBC Per 100 WBC 0 /100 WBCS (0.0-0.0); Neutrophils # (A) 5.56 X 10*3/uL (1.80-7.70); Neutrophils % (A) 67.8 %; Platelet Count 252 X 10*3/uL (140-440); RBC 5.05 X 10*6/uL (4.40-5.60); RDW 13.2 % (11.5-14.5); WBC 8.19 X 10*3/uL (4.50-10.00)
[2022-08-21 02:07] LABS: ALT 33 U/L (10-49); AST 28 U/L (14-35); African American GFR (CKD) 125.8 (60.0-200.0); Albumin 4.6 g/dL (3.8-4.9); Albumin/Globulin Ratio 2.02 (1.60-3.17); Alkaline Phosphatase 96 U/L (41-126); BUN/Creat Ratio 15.44 Ratio (12.00-20.00); Blood Urea Nitrogen 14.5 mg/dL (9.0-27.0); Calcium 9.7 mg/dL (8.7-10.3); Carbon Dioxide 25.9 mmol/L (20.0-27.5); Chloride 103 mmol/L (96-109); Chol/HDL Ratio 4.05 Ratio; Globulin 2.3 g/dL (1.6-3.3); Glucose 87 mg/dL (70-110); LDL Cholesterol,Calculated 119.9 mg/dL (0.0-131.0); Non-African American GFR(CKD) 108.5 (60.0-200.0); Potassium 4.2 mmol/L (3.5-5.5); Sodium 141 mmol/L (135-145); Total Protein 6.9 g/dL (6.2-8.2); VLDL Calculation 17.24 mg/dL (5.00-40.00)
== END | disposition home or self-care (01) ==
LOC: LABWHC1 16:23
PROVIDERS: ATTEND Family Medicine
DX: Z00.00 Encounter for general adult medical examination without abnormal findings (principal); I10 Essential (primary) hypertension; Z79.899 Other long term (current) drug therapy
CPT/HCPCS: 36415; 80053; 80061; 83036; 84439; 84443; 84481; 85025

== ENCOUNTER 2023-01-29 09:31 | Day surgery (SDC) | payer OTHER ==
[2023-01-29] MEDS ORDERED: LACTATED RINGERS 1,000 ML IV SCH (10:03)
[2023-01-29] MEDS ORDERED: LIDOCAINE 1% (10MG/ML) FOR IV START INTRADERMA PRN (10:03)
[2023-01-29] MEDS ORDERED: ONDANSETRON 4 MG/2 ML VIAL IVP PRN (10:03)
[2023-01-29 10:19] VITALS: TEMP 97
[2023-01-29] MEDS ORDERED: LIDOCAINE 2% INJ 20 MG/ML (2 ML VIAL) ONE (11:25)
[2023-01-29] MEDS ORDERED: PROPOFOL 10 MG/ML 20 ML VIAL IV ONE (11:25)
--- NOTE | 2023-01-29 11:39 | P.PCN ---
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 He scheduled for a surveillance colonoscopy today. Last colonoscopy was 3 years ago that was normal. PROCEDURE PERFORMED: Colonoscopy. PREOPERATIVE DIAGNOSIS: History of appendiceal cancer diagnosed 6 years. IV sedation per Anesthesia. PROCEDURE: After informed consent was obtained, the patient, was brought into the endoscopy unit. IV sedation was administered by Anesthesia under continuous monitoring. Digital rectal examination was normal. Initially the Olympus CF-160 flexible video colonoscope was then inserted in the rectum, gradually advanced into the right colon with ileocolic anastomosis was visualized and appeared normal. The prep was somewhat poor at the ileocolic anastomosis as well as in the rest of the colon and thorough irrigation was performed. The visualized portions of the transverse colon, descending colon, sigmoid colon, and rectum appeared normal. Retroflexion was performed in the rectum and no lesions were seen. The patient tolerated the procedure well. IMPRESSION: Normal-appearing colon from rectum to the liquid anastomosis with no evidence of colorectal neoplasia Poor prep in several areas of the colon. RECOMMENDATIONS: Findings of this examination were discussed with the patient as well as his family. He was advised to have a repeat surveillance colonoscopy in 3 years..
[2023-01-29 11:44] VITALS: RESP 16
[2023-01-29 11:57] VITALS: BP 125/55; PULSE 63
== END 2023-01-29 12:18 | disposition home or self-care (01) ==
LOC: ORWHC2ENDO 09:31
PROVIDERS: ATTEND Internal Medicine Gastroenterology
DX: Z12.11 Encounter for screening for malignant neoplasm of colon (principal); I10 Essential (primary) hypertension; J45.909 Unspecified asthma, uncomplicated; Z79.899 Other long term (current) drug therapy; Z85.038 Personal history of other malignant neoplasm of large intestine
CPT/HCPCS: 45378; J2704; J2001

== ENCOUNTER 2023-11-09 16:22 | Emergency (ER) | payer OTHER ==
[2023-11-09] MEDS ORDERED: ASPIRIN 81 MG PO STA (16:38)
[2023-11-09] MEDS ORDERED: SODIUM CHLORIDE 0.9% 1,000 ML IV STA (16:38)
[2023-11-09 16:40] VITALS: RESP 18
[2023-11-09] MEDS ORDERED: NITROGLYCERIN SL TABS 0.4 MG TAB SUBLINGUAL PRN (16:50)
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
[2023-11-09 17:25] LABS: Basophils % (A) 1 %; Eosinophils # (A) 0.2 k/uL (0-0.7); Eosinophils % (A) 2 %; HCT 47.9 % (39.0-53.0); HGB 16.3 gm/dL (13.0-17.5); Lymphocytes # (A) 1.6 k/uL (1.0-4.8); Lymphocytes % (A) 17 %; MCH 30.5 pg (25.0-35.0); MCHC 34.1 g/dL (31.0-37.0); MCV 89.4 fL (80.0-100.0); Mean Platelet Volume 8.5; Monocytes # (A) 0.5 k/uL (0-1.0); Monocytes % (A) 5 %; Neutrophils # (A) 7.1 k/uL (1.3-7.7); Neutrophils % (A) 75 %; Platelet Count 267 k/uL (150-450); RBC 5.36 m/uL (4.30-5.90); RDW 12.7 % (11.5-15.5); VBG PH 7.35 (7.31-7.41); WBC 9.5 k/uL (3.8-10.6)
[2023-11-09 17:37] LABS: INR 0.9 (<1.2); Partial Thromboplastin Time 23.7 sec (22.0-30.0)
[2023-11-09 17:46] LABS: ALT 35 U/L (4-49); AST 33 U/L (17-59); African American GFR (CKD) >90 (>60 ml/min/1.73 sqM); Albumin 4.7 g/dL (3.5-5.0); Alkaline Phosphatase 107 U/L (38-126); Anion Gap 13 mmol/L; Blood Urea Nitrogen 20 mg/dL (9-20); Calcium 9.7 mg/dL (8.4-10.2); Carbon Dioxide 25 mmol/L (22-30); Chloride 101 mmol/L (98-107); Glucose 88 mg/dL (74-99); Lipase 44 U/L (23-300); Non-African American GFR(CKD) >90 (>60 ml/min/1.73 sqM); Potassium 4.5 mmol/L (3.5-5.1); Sodium 139 mmol/L (137-145); Total Bilirubin 1.5 mg/dL (0.2-1.3); Total Protein 7.9 g/dL (6.3-8.2)
[2023-11-09 17:53] LABS: NT-Pro-B-Type Natriuretic Pept <20 pg/mL
--- NOTE | 2023-11-09 17:55 | XR ---
EXAMINATION TYPE: XR chest 2V DATE OF EXAM: 11/09/2023 COMPARISON: 06/05/2019 HISTORY: 33-year-old male with chest pain and shortness of breath TECHNIQUE: PA and lateral views FINDINGS: Heart normal size. Aorta and pulmonary vasculature within normal limits. Mild central peribronchial c uffing without consolidation or pleural effusion. IMPRESSION: There may be some mild central peribronchial cuffing that can be seen with bronchitis or asthma. Othe rwise, no acute process seen.
[2023-11-09] MEDS ORDERED: KETOROLAC 15 MG/ML 1 ML VIAL IVP STA (18:22)
[2023-11-09] MEDS ORDERED: IPRATROPIUM-ALBUTEROL 3 ML NEB INHALATION STA (18:22)
[2023-11-09 21:08] VITALS: BP 126/70; PULSE 70; TEMP 98.2
== END 2023-11-09 21:36 | disposition home or self-care (01) ==
LOC: EC 16:22
DX: R07.89 Other chest pain (principal); J45.909 Unspecified asthma, uncomplicated; I10 Essential (primary) hypertension; F90.9 Attention-deficit hyperactivity disorder, unspecified type; F32.A Depression, unspecified; Z87.891 Personal history of nicotine dependence; Z79.899 Other long term (current) drug therapy; Z88.8 Allergy status to other drugs, medicaments and biological substances; Z86.16 Personal history of COVID-19
CPT/HCPCS: 36415; 94640; 93005; 85379; 83880; 80053; 82375; 82803; 83690; 83735; 84484; 85025; 85610; 85730; 71046; 99285; 96374; 96361; J1885